=== PATIENT | male | born 1955 | race Caucasian/White ===

== ENCOUNTER 2022-12-11 12:15 | Inpatient (IN) | payer MEDICARE ==
[2022-12-22 14:52] VITALS: BMI 30.2
[2022-12-26] MEDS ORDERED: Dexmedetomidine 200 MCG/2 ML VIAL ONE (09:13)
[2022-12-26] MEDS ORDERED: Fentanyl 250 MCG/5 ML VIAL ONE (09:13)
[2022-12-26] MEDS ORDERED: SUGAMMADEX SODIUM 200 MG/2 ML VIAL ONE (09:13)
[2022-12-26] MEDS ORDERED: Bupivacaine PF 0.5% 30 ML VIAL ONE (09:18)
[2022-12-26] MEDS ORDERED: Sodium Chloride 0.9% 100 ML ONE (09:25)
[2022-12-26] MEDS ORDERED: cefOXitin 2 GM VIAL ONE (09:25)
[2022-12-26] MEDS ORDERED: Rocuronium Bromide 10 MG/ML (10ML VIAL) ONE (09:37)
[2022-12-26] MEDS ORDERED: PROPOFOL 200 MG/20 ML VIAL ONE (09:37)
[2022-12-26] MEDS ORDERED: Lidocaine 1% PF 5 ML VIAL ONE (09:37)
[2022-12-26] MEDS ORDERED: NEOSTIGMINE 3 MG/3 ML SYR 3 MG/3 ML SYRINGE ONE (09:37)
[2022-12-26] MEDS ORDERED: Phenylephrine 10 MG/ML VIAL ONE (09:37)
[2022-12-26] MEDS ORDERED: Ondansetron PF 4 MG/2 ML Vial ONE (09:37)
[2022-12-26] MEDS ORDERED: GLYCOPYRROLATE/PF 0.2 MG/ML VIAL ONE (09:37)
[2022-12-26] MEDS ORDERED: Dextrose 5% in Water 1,000 ML IV PRN (12:33)
[2022-12-26] MEDS ORDERED: Promethazine HCl 25 MG/ML VIAL IM PRN (12:33)
[2022-12-26] MEDS ORDERED: Dextrose 50% Abboject 50 ML SYRINGE SLOW IVP PRN (12:33)
[2022-12-26] MEDS ORDERED: hydrALAZINE 20 MG/ML VIAL SLOW IVP PRN (12:33)
[2022-12-26] MEDS ORDERED: Ipratropium/Albuterol 3 ML NEB NEB PRN (12:33)
[2022-12-26] MEDS ORDERED: Ondansetron PF 4 MG/2 ML Vial IVP PRN (12:33)
[2022-12-26] MEDS ORDERED: Morphine 4 MG/ML VIAL SLOW IVP PRN (12:33)
[2022-12-26] MEDS: Sodium Chloride 0.9% 1,000 ML IV SCH (14:13)
[2022-12-26] MEDS: HYDROcodone/Acetaminophen 7.5/325 mg Tablet PO PRN (21:18)
[2022-12-26] MEDS: traZODone HCl 50 MG TAB PO SCH (21:19)
[2022-12-26] MEDS: Famotidine/PF 20 mg/2ml Vial SLOW IVP SCH (21:20)
[2022-12-26] MEDS: busPIRone HCl 10 MG TAB PO SCH (21:20)
[2022-12-26] MEDS: Losartan 25 MG TAB PO SCH (21:20)
[2022-12-26] MEDS: Atorvastatin Calcium 40 MG TAB PO SCH (21:20)
[2022-12-26] MEDS: Famotidine 20 MG TAB PO SCH (21:20)
[2022-12-27] MEDS: Sodium Chloride 0.9% 1,000 ML IV SCH (02:16)
[2022-12-27 06:01] LABS: #Lymphocytes 0.9 thou/uL (1.20-3.40); #Monocytes 0.7 thou/uL (0.11-0.59); #Neutrophils 5.6 thou/uL (1.40-6.50); %Basophils 0.2 % (0.0-1.0); %Eosinophils 0.4 % (0.0-10.0); %Lymphocytes 12.1 % (21.0-51.0); %Monocytes 9.5 % (0.0-10.0); %Neutrophils 77.9 % (42.0-75.0); Mean Corpuscular HGB CONC 32.8 g/dL (32.0-36.0); Mean Corpuscular Hemoglobin 29.2 pg (27.0-31.0); Mean Platelet Volume 5.7 fL (7.4-10.4); Platelet Count 231 10x3/uL (130-400); RBC Distribution Width 13.7 % (11.5-14.5); White Blood Cell (WBC) Count 7.2 10x3/uL (4.8-10.8)
[2022-12-27 06:23] LABS: Anion Gap 12 mmol/L (10-20); BUN (Urea Nitrogen) 14 mg/dL (8.4-25.7); Calc. Creatinine Clearance 84 mL/min (70-130); Carbon Dioxide 22 mmol/L (23-31); Chloride 96 mmol/L (98-107); Estimated GFR 62; Glucose 173 mg/dL (80-115); Potassium 3.7 mmol/L (3.5-5.1); Sodium 126 mmol/L (136-145)
[2022-12-27] MEDS: hydrALAZINE 25 MG TAB PO SCH ×2 (09:27→12:16)
[2022-12-27] MEDS: Lidocaine 4% Patch TD SCH (09:27)
[2022-12-27] MEDS: Hydrochlorothiazide 25 MG TAB PO SCH (09:28)
[2022-12-27] MEDS: Famotidine 20 MG TAB PO SCH ×2 (09:28→21:56)
[2022-12-27] MEDS: DULoxetine 60 MG CAP PO SCH (09:28)
[2022-12-27] MEDS: Naproxen 500 MG TAB PO SCH (09:28)
[2022-12-27] MEDS: Escitalopram Oxalate 20 mg Tablet PO SCH (09:28)
[2022-12-27] MEDS: busPIRone HCl 10 MG TAB PO SCH ×2 (09:29→21:56)
[2022-12-27] MEDS: Famotidine/PF 20 mg/2ml Vial SLOW IVP SCH ×2 (09:30→22:01)
[2022-12-27] MEDS: HYDROcodone/Acetaminophen 7.5/325 mg Tablet PO PRN ×2 (09:31→15:29)
[2022-12-27] MEDS ORDERED: Transdermal Patch Removal TOP SCH (21:00)
[2022-12-27] MEDS: traZODone HCl 50 MG TAB PO SCH (21:55)
[2022-12-27] MEDS: Losartan 25 MG TAB PO SCH (21:55)
[2022-12-27] MEDS: Atorvastatin Calcium 40 MG TAB PO SCH (21:56)
[2022-12-28] MEDS: Lidocaine 4% Patch TD SCH (08:18)
[2022-12-28] MEDS: busPIRone HCl 10 MG TAB PO SCH (08:19)
[2022-12-28] MEDS: hydrALAZINE 25 MG TAB PO SCH ×2 (08:20→12:07)
[2022-12-28] MEDS: Naproxen 500 MG TAB PO SCH (08:21)
[2022-12-28] MEDS: Famotidine 20 MG TAB PO SCH (08:21)
[2022-12-28] MEDS: DULoxetine 60 MG CAP PO SCH (08:21)
[2022-12-28] MEDS: Escitalopram Oxalate 20 mg Tablet PO SCH (08:22)
[2022-12-28] MEDS: Hydrochlorothiazide 25 MG TAB PO SCH (08:23)
[2022-12-28] MEDS: Famotidine/PF 20 mg/2ml Vial SLOW IVP SCH (08:23)
[2022-12-28] MEDS: HYDROcodone/Acetaminophen 7.5/325 mg Tablet PO PRN (08:34)
[2022-12-28 11:52] VITALS: TEMP 97.8
[2022-12-28 12:20] VITALS: BP 113/67
== END 2022-12-28 12:30 | disposition home health service (06) | DRG 337 ==
LOC: SURG A 12-26 06:05 → SJJU 12-26 13:42 → EDSTATUS 12-26 15:49
PROVIDERS: ADMIT Surgery; ATTEND Surgery
PROC: 0DBU0ZZ Excision of Omentum, Open Approach (ICD-10-PCS; principal; 2022-12-26)
PROC: 0DNW0ZZ Release Peritoneum, Open Approach (ICD-10-PCS; 2022-12-26)
DX: K55.049 Acute infarction of large intestine, extent unspecified (principal); I10 Essential (primary) hypertension; E78.00 Pure hypercholesterolemia, unspecified; F41.9 Anxiety disorder, unspecified; G89.29 Other chronic pain; K66.0 Peritoneal adhesions (postprocedural) (postinfection); Z96.611 Presence of right artificial shoulder joint; Z87.891 Personal history of nicotine dependence; Z90.49 Acquired absence of other specified parts of digestive tract; Z79.899 Other long term (current) drug therapy; Z88.8 Allergy status to other drugs, medicaments and biological substances
CPT/HCPCS: 36416; 80048; 85025; 88307; A4306; C1776; J0694; J1650; J2270; J2370; J2405; J2704; J3010; J3490; J7050; S0020

== ENCOUNTER 2023-01-04 18:38 | Inpatient (IN) | payer MEDICARE ==
[2023-01-04] MEDS ORDERED: Morphine 4 MG/ML VIAL ONE (19:23)
[2023-01-04 19:58] LABS: Hemoglobin 9.7 g/dL (14.0-18.0); Mean Corpuscular HGB CONC 35.3 g/dL (32.0-36.0); Mean Corpuscular Hemoglobin 31.3 pg (27.0-31.0); Mean Corpuscular Volume 88.7 fl (78.0-98.0); Mean Platelet Volume 6.3 fL (7.4-10.4); Platelet Count 194 10x3/uL (130-400); RBC Distribution Width 13.8 % (11.5-14.5); Red Blood Cell (RBC) Count 3.11 mill/uL (4.70-6.10); White Blood Cell (WBC) Count 6.9 10x3/uL (4.8-10.8)
[2023-01-04 20:14] LABS: Anion Gap 16 mmol/L (10-20); BUN (Urea Nitrogen) 31 mg/dL (8.4-25.7); Calc. Creatinine Clearance 0 mL/min (70-130); Carbon Dioxide 21 mmol/L (23-31); Chloride 93 mmol/L (98-107); Estimated GFR 34; Glucose 137 mg/dL (80-115); Potassium 4.1 mmol/L (3.5-5.1); Sodium 126 mmol/L (136-145)
[2023-01-04 20:39] LABS: Band 38 % (5-11); Lymphocytes 5 % (21-51); MDiff Complete? YES; Metamyelocyte 2 % (0-0); Monocytes 5 % (0-10); Neutrophil 50 % (42-75); Platelet Morphology Comment Appears Adequate; RBC Morphology Normal; Toxic Granulation SLIGHT
[2023-01-04] MEDS ORDERED: Dextrose 50% Abboject 50 ML SYRINGE SLOW IVP PRN (21:31)
[2023-01-04] MEDS ORDERED: Piperacillin/Tazobactam 3.375 GM in Sodium Chloride 0.9% 100 ML IVPB SCH (21:31)
[2023-01-04] MEDS ORDERED: Ipratropium/Albuterol 3 ML NEB NEB PRN (21:31)
[2023-01-04] MEDS ORDERED: Morphine 4 MG/ML VIAL SLOW IVP PRN (21:31)
[2023-01-04] MEDS ORDERED: Promethazine HCl 25 MG/ML VIAL IM PRN (21:31)
[2023-01-04] MEDS ORDERED: Dextrose 5% in Water 1,000 ML IV PRN (21:31)
[2023-01-04] MEDS: Sodium Chloride 0.9% 1,000 ML IV SCH (22:09)
[2023-01-04] MEDS: busPIRone HCl 10 MG TAB PO SCH (22:16)
[2023-01-04] MEDS: hydrALAZINE 25 MG TAB PO SCH (22:16)
[2023-01-04] MEDS: traZODone HCl 50 MG TAB PO SCH (22:17)
[2023-01-04] MEDS: Atorvastatin Calcium 40 MG TAB PO SCH (22:18)
[2023-01-05] MEDS: Piperacillin/Tazobactam 3.375 GM in Sodium Chloride 0.9% 100 ML IVPB SCH ×3 (02:47→18:23)
[2023-01-05 06:31] LABS: Anion Gap 18 mmol/L (10-20); BUN (Urea Nitrogen) 38 mg/dL (8.4-25.7); Calc. Creatinine Clearance 34 mL/min (70-130); Calcium 8.3 mg/dL (7.8-10.44); Carbon Dioxide 18 mmol/L (23-31); Chloride 93 mmol/L (98-107); Estimated GFR 21; Glucose 138 mg/dL (80-115); Sodium 125 mmol/L (136-145)
[2023-01-05 06:35] LABS: Band 35 % (5-11); Hemoglobin 8.4 g/dL (14.0-18.0); Lymphocytes 10 % (21-51); MDiff Complete? YES; Mean Corpuscular HGB CONC 33.8 g/dL (32.0-36.0); Mean Corpuscular Volume 88.6 fl (78.0-98.0); Mean Platelet Volume 6.2 fL (7.4-10.4); Metamyelocyte 1 % (0-0); Monocytes 5 % (0-10); Neutrophil 49 % (42-75); Platelet Count 164 10x3/uL (130-400); Platelet Morphology Comment Appears Adequate; RBC Distribution Width 13.8 % (11.5-14.5); RBC Morphology Normal; Red Blood Cell (RBC) Count 2.79 mill/uL (4.70-6.10); White Blood Cell (WBC) Count 5.9 10x3/uL (4.8-10.8)
[2023-01-05] MEDS: Famotidine 20 MG TAB PO SCH (08:50)
[2023-01-05] MEDS: busPIRone HCl 10 MG TAB PO SCH ×2 (08:50→20:28)
[2023-01-05] MEDS: DULoxetine 60 MG CAP PO SCH (08:51)
[2023-01-05] MEDS: Escitalopram Oxalate 20 mg Tablet PO SCH (08:54)
[2023-01-05] MEDS ORDERED: Naproxen 500 MG TAB PO SCH (09:00)
[2023-01-05] MEDS ORDERED: Hydrochlorothiazide 25 MG TAB PO SCH (09:00)
[2023-01-05] MEDS: Sodium Chloride 0.9% 1,000 ML IV SCH ×3 (09:09→21:00)
[2023-01-05] MEDS: hydrALAZINE 25 MG TAB PO SCH ×2 (10:01→20:28)
[2023-01-05] MEDS: Polyethylene Glycol 3350 17 GM Packet PO SCH (10:02)
[2023-01-05] MEDS ORDERED: Sodium Chloride 0.9% 1,000 ML IV SCH (13:45)
[2023-01-05 16:16] LABS: Lactic Acid 1.6 mmol/L (0.5-2.2)
[2023-01-05 16:50] LABS: Anion Gap 20 mmol/L (10-20); BUN (Urea Nitrogen) 46 mg/dL (8.4-25.7); Calc. Creatinine Clearance 27 mL/min (70-130); Calcium 8.3 mg/dL (7.8-10.44); Carbon Dioxide 16 mmol/L (23-31); Chloride 95 mmol/L (98-107); Estimated GFR 16; Glucose 146 mg/dL (80-115); Magnesium 1.7 mg/dL (1.6-2.6); Phosphorus 6.5 mg/dL (2.3-4.7); Potassium 4.1 mmol/L (3.5-5.1); Sodium 127 mmol/L (136-145)
[2023-01-05] MEDS: Atorvastatin Calcium 40 MG TAB PO SCH (20:28)
[2023-01-05] MEDS: traZODone HCl 50 MG TAB PO SCH (20:29)
[2023-01-05] MEDS ORDERED: Losartan 25 MG TAB PO SCH (21:00)
[2023-01-06 00:14] LABS: Bacteria/HPF None Seen HPF (None Seen); Bilirubin Negative (Negative); Blood, Urine 2+ (Negative); Clarity Turbid (Clear); Glucose, Urine (Dipstick) Normal (Negative); Ketone, Urine Negative (Negative); Leukocyte Negative Leu/uL (Negative); Nitrite Negative (Negative); Protein, Urine (Dipstick) 50 mg/dL (Neg-Trace); Squamous Epithelial 0-3 HPF (0-3); Urobilinogen Normal mg/dL (Less than 2)
[2023-01-06] MEDS: Piperacillin/Tazobactam 3.375 GM in Sodium Chloride 0.9% 100 ML IVPB SCH ×3 (02:27→17:58)
[2023-01-06] MEDS: Sodium Chloride 0.9% 1,000 ML IV SCH ×2 (05:23→09:38)
[2023-01-06 07:14] LABS: Hemoglobin 9.4 g/dL (14.0-18.0); Mean Corpuscular HGB CONC 35.2 g/dL (32.0-36.0); Mean Corpuscular Hemoglobin 31.6 pg (27.0-31.0); Mean Corpuscular Volume 89.9 fl (78.0-98.0); Mean Platelet Volume 6.3 fL (7.4-10.4); Platelet Count 189 10x3/uL (130-400); RBC Distribution Width 14.1 % (11.5-14.5); Red Blood Cell (RBC) Count 2.97 mill/uL (4.70-6.10); White Blood Cell (WBC) Count 7.8 10x3/uL (4.8-10.8)
[2023-01-06 07:27] LABS: ALT (SGPT) 13 U/L (8-55); AST (SGOT) 19 U/L (5-34); Albumin 2.3 g/dL (3.4-4.8); Alkaline Phosphatase 127 U/L (40-110); Anion Gap 17 mmol/L (10-20); BUN (Urea Nitrogen) 58 mg/dL (8.4-25.7); Calc. Creatinine Clearance 21 mL/min (70-130); Carbon Dioxide 17 mmol/L (23-31); Chloride 96 mmol/L (98-107); Estimated GFR 12; Glucose 134 mg/dL (80-115); Potassium 4.3 mmol/L (3.5-5.1); Protein, Total 5.3 g/dL (5.8-8.1); Sodium 126 mmol/L (136-145)
[2023-01-06 09:34] LABS: Band 17 % (5-11); Lymphocytes 11 % (21-51); MDiff Complete? YES; Metamyelocyte 3 % (0-0); Monocytes 9 % (0-10); Neutrophil 59 % (42-75); Platelet Morphology Comment Appears Adequate; Polychromasia SLIGHT = 2-3 cells (100X) (0-2/hpf)
[2023-01-06] MEDS: Polyethylene Glycol 3350 17 GM Packet PO SCH (09:42)
[2023-01-06] MEDS: hydrALAZINE 25 MG TAB PO SCH (09:44)
[2023-01-06] MEDS: busPIRone HCl 10 MG TAB PO SCH ×2 (09:44→20:45)
[2023-01-06] MEDS: Famotidine 20 MG TAB PO SCH (09:45)
[2023-01-06] MEDS: Escitalopram Oxalate 20 mg Tablet PO SCH (09:45)
[2023-01-06] MEDS: DULoxetine 60 MG CAP PO SCH (09:45)
[2023-01-06] MEDS: HYDROcodone/Acetaminophen 10/325 mg Tablet PO PRN ×2 (10:06→20:44)
[2023-01-06] MEDS: Albumin 25% 25 GM/100 ML BOT IVPB SCH ×2 (12:59→17:57)
[2023-01-06 20:26] LABS: Anion Gap 19 mmol/L (10-20); BUN (Urea Nitrogen) 64 mg/dL (8.4-25.7); Calc. Creatinine Clearance 19 mL/min (70-130); Calcium 8.3 mg/dL (7.8-10.44); Carbon Dioxide 15 mmol/L (23-31); Chloride 96 mmol/L (98-107); Estimated GFR 11; Glucose 147 mg/dL (80-115); Potassium 4.1 mmol/L (3.5-5.1); Sodium 126 mmol/L (136-145)
[2023-01-06] MEDS: Atorvastatin Calcium 40 MG TAB PO SCH (20:44)
[2023-01-06] MEDS: traZODone HCl 50 MG TAB PO SCH (20:45)
[2023-01-06] MEDS ORDERED: Furosemide 100 MG/10 ML VIAL SLOW IVP SCH (23:30)
[2023-01-07] MEDS: Albumin 25% 25 GM/100 ML BOT IVPB SCH ×2 (00:04→06:02)
[2023-01-07] MEDS: Sodium Chloride 0.9% 1,000 ML IV SCH ×3 (00:05→19:23)
[2023-01-07] MEDS: Piperacillin/Tazobactam 3.375 GM in Sodium Chloride 0.9% 100 ML IVPB SCH ×3 (02:17→21:25)
[2023-01-07 06:23] LABS: Anion Gap 19 mmol/L (10-20); BUN (Urea Nitrogen) 69 mg/dL (8.4-25.7); Calc. Creatinine Clearance 18 mL/min (70-130); Calcium 8.4 mg/dL (7.8-10.44); Carbon Dioxide 15 mmol/L (23-31); Chloride 97 mmol/L (98-107); Estimated GFR 10; Glucose 134 mg/dL (80-115); Potassium 4.2 mmol/L (3.5-5.1); Sodium 127 mmol/L (136-145)
[2023-01-07 06:26] LABS: Anion Gap 20 mmol/L (10-20); BUN (Urea Nitrogen) 72 mg/dL (8.4-25.7); Calc. Creatinine Clearance 18 mL/min (70-130); Calcium 8.5 mg/dL (7.8-10.44); Carbon Dioxide 15 mmol/L (23-31); Chloride 97 mmol/L (98-107); Estimated GFR 10; Glucose 133 mg/dL (80-115); Potassium 4.2 mmol/L (3.5-5.1); Sodium 128 mmol/L (136-145)
[2023-01-07 06:31] LABS: Band 13 % (5-11); Lymphocytes 12 % (21-51); MDiff Complete? YES; Mean Corpuscular HGB CONC 35.1 g/dL (32.0-36.0); Mean Corpuscular Hemoglobin 31.5 pg (27.0-31.0); Mean Corpuscular Volume 89.6 fl (78.0-98.0); Mean Platelet Volume 6.3 fL (7.4-10.4); Metamyelocyte 1 % (0-0); Monocytes 2 % (0-10); Myelocyte 1 % (0-0); Neutrophil 71 % (42-75); Platelet Count 199 10x3/uL (130-400); Platelet Morphology Comment Appears Adequate; RBC Distribution Width 14.4 % (11.5-14.5); RBC Morphology Normal; Red Blood Cell (RBC) Count 2.84 mill/uL (4.70-6.10); White Blood Cell (WBC) Count 9.6 10x3/uL (4.8-10.8)
[2023-01-07] MEDS ORDERED: Heparin 10,000 UNITS/ 10 ML VIAL ONE (08:40)
[2023-01-07] MEDS: busPIRone HCl 10 MG TAB PO SCH ×2 (09:54→21:25)
[2023-01-07] MEDS: Famotidine 20 MG TAB PO SCH (09:55)
[2023-01-07] MEDS: Escitalopram Oxalate 20 mg Tablet PO SCH (09:55)
[2023-01-07] MEDS: Polyethylene Glycol 3350 17 GM Packet PO SCH (09:55)
[2023-01-07] MEDS: DULoxetine 60 MG CAP PO SCH (09:55)
[2023-01-07 12:19] LABS: HBSAg Index 0.22 S/CO (0-0.99); Hep B Surf Ag Non-Reactive S/CO (NonReactive)
[2023-01-07 13:17] LABS: HBSAB Concentration 9.98 mIU/mL
[2023-01-07 13:19] LABS: Hep B Surf AB Indeterminate (NonReactive)
[2023-01-07] MEDS: traZODone HCl 50 MG TAB PO SCH (21:24)
[2023-01-07] MEDS: Atorvastatin Calcium 40 MG TAB PO SCH (21:25)
[2023-01-08] MEDS: hydrALAZINE 20 MG/ML VIAL SLOW IVP PRN (04:56)
[2023-01-08] MEDS: HYDROcodone/Acetaminophen 10/325 mg Tablet PO PRN ×3 (04:56→16:26)
[2023-01-08 06:30] LABS: Band 27 % (5-11); Hypochromia SLIGHT = 6-15 cells (100X) (0-5/hpf); Lymphocytes 9 % (21-51); MDiff Complete? YES; Mean Corpuscular HGB CONC 33.2 g/dL (32.0-36.0); Mean Corpuscular Hemoglobin 29.6 pg (27.0-31.0); Mean Platelet Volume 6.2 fL (7.4-10.4); Monocytes 3 % (0-10); Neutrophil 61 % (42-75); Platelet Count 213 10x3/uL (130-400); Platelet Morphology Comment Appears Adequate; RBC Distribution Width 14.6 % (11.5-14.5); Red Blood Cell (RBC) Count 3.04 mill/uL (4.70-6.10); White Blood Cell (WBC) Count 10.6 10x3/uL (4.8-10.8)
[2023-01-08 06:34] LABS: Anion Gap 22 mmol/L (10-20); BUN (Urea Nitrogen) 67 mg/dL (8.4-25.7); Calc. Creatinine Clearance 18 mL/min (70-130); Calcium 8.8 mg/dL (7.8-10.44); Carbon Dioxide 15 mmol/L (23-31); Chloride 98 mmol/L (98-107); Estimated GFR 10; Glucose 143 mg/dL (80-115); Potassium 4.2 mmol/L (3.5-5.1); Sodium 131 mmol/L (136-145)
[2023-01-08] MEDS: Sodium Chloride 0.9% 1,000 ML IV SCH (09:33)
[2023-01-08] MEDS: Polyethylene Glycol 3350 17 GM Packet PO SCH (09:34)
[2023-01-08] MEDS: busPIRone HCl 10 MG TAB PO SCH ×2 (09:34→21:10)
[2023-01-08] MEDS: Piperacillin/Tazobactam 3.375 GM in Sodium Chloride 0.9% 100 ML IVPB SCH ×2 (09:34→21:09)
[2023-01-08] MEDS: DULoxetine 60 MG CAP PO SCH (09:34)
[2023-01-08] MEDS: Famotidine 20 MG TAB PO SCH (09:34)
[2023-01-08] MEDS: Escitalopram Oxalate 20 mg Tablet PO SCH (09:34)
[2023-01-08] MEDS: Atorvastatin Calcium 40 MG TAB PO SCH (21:10)
[2023-01-08] MEDS: traZODone HCl 50 MG TAB PO SCH (21:10)
[2023-01-09] MEDS: HYDROcodone/Acetaminophen 10/325 mg Tablet PO PRN ×3 (05:25→21:56)
[2023-01-09 06:23] LABS: Anion Gap 19 mmol/L (10-20); BUN (Urea Nitrogen) 56 mg/dL (8.4-25.7); Calc. Creatinine Clearance 21 mL/min (70-130); Calcium 8.7 mg/dL (7.8-10.44); Carbon Dioxide 19 mmol/L (23-31); Chloride 99 mmol/L (98-107); Estimated GFR 12; Glucose 148 mg/dL (80-115); Potassium 3.7 mmol/L (3.5-5.1); Sodium 133 mmol/L (136-145)
[2023-01-09 07:16] LABS: Hemoglobin 9.1 g/dL (14.0-18.0); Mean Corpuscular HGB CONC 33.1 g/dL (32.0-36.0); Mean Corpuscular Hemoglobin 29.5 pg (27.0-31.0); Mean Platelet Volume 6.1 fL (7.4-10.4); Platelet Count 203 10x3/uL (130-400); RBC Distribution Width 14.7 % (11.5-14.5); Red Blood Cell (RBC) Count 3.08 mill/uL (4.70-6.10)
[2023-01-09] MEDS: Sodium Chloride 0.9% 1,000 ML IV SCH (07:26)
[2023-01-09 08:55] LABS: Band 32 % (5-11); Eosinophils 1 % (0-10); Lymphocytes 5 % (21-51); MDiff Complete? YES; Monocytes 4 % (0-10); Myelocyte 2 % (0-0); Neutrophil 55 % (42-75); Platelet Morphology Comment Appears Adequate; Polychromasia SLIGHT = 2-3 cells (100X) (0-2/hpf); Reactive Lymphocytes 1 % (0-10); Toxic Granulation SLIGHT
[2023-01-09] MEDS: Polyethylene Glycol 3350 17 GM Packet PO SCH (09:05)
[2023-01-09] MEDS ORDERED: Heparin 10,000 UNITS/ 10 ML VIAL ONE (10:09)
[2023-01-09] MEDS: Escitalopram Oxalate 20 mg Tablet PO SCH (12:41)
[2023-01-09] MEDS: Famotidine 20 MG TAB PO SCH (12:41)
[2023-01-09] MEDS: busPIRone HCl 10 MG TAB PO SCH ×2 (12:41→21:57)
[2023-01-09] MEDS: DULoxetine 60 MG CAP PO SCH (12:42)
[2023-01-09] MEDS: Piperacillin/Tazobactam 3.375 GM in Sodium Chloride 0.9% 100 ML IVPB SCH ×2 (13:02→21:58)
[2023-01-09] MEDS ORDERED: GASTROGRAFIN 30 ML BOT ONE (15:00)
[2023-01-09] MEDS: traZODone HCl 50 MG TAB PO SCH (21:57)
[2023-01-09] MEDS: Atorvastatin Calcium 40 MG TAB PO SCH (21:57)
[2023-01-10] MEDS: Sodium Chloride 0.9% 1,000 ML IV SCH ×2 (00:47→23:38)
[2023-01-10] MEDS: busPIRone HCl 10 MG TAB PO SCH ×2 (07:45→23:21)
[2023-01-10] MEDS: Escitalopram Oxalate 20 mg Tablet PO SCH (07:46)
[2023-01-10] MEDS: Polyethylene Glycol 3350 17 GM Packet PO SCH (07:46)
[2023-01-10] MEDS: DULoxetine 60 MG CAP PO SCH (07:46)
[2023-01-10] MEDS: Famotidine 20 MG TAB PO SCH (07:46)
[2023-01-10] MEDS: Piperacillin/Tazobactam 3.375 GM in Sodium Chloride 0.9% 100 ML IVPB SCH ×2 (09:03→23:38)
[2023-01-10 10:39] LABS: Hemoglobin 8.9 g/dL (14.0-18.0); Mean Corpuscular HGB CONC 33.8 g/dL (32.0-36.0); Mean Corpuscular Hemoglobin 30.1 pg (27.0-31.0); Mean Corpuscular Volume 89.1 fl (78.0-98.0); Mean Platelet Volume 6.9 fL (7.4-10.4); Platelet Count 168 10x3/uL (130-400); RBC Distribution Width 14.6 % (11.5-14.5); Red Blood Cell (RBC) Count 2.97 mill/uL (4.70-6.10); White Blood Cell (WBC) Count 8.1 10x3/uL (4.8-10.8)
[2023-01-10 10:53] LABS: Anion Gap 19 mmol/L (10-20); BUN (Urea Nitrogen) 47 mg/dL (8.4-25.7); Calc. Creatinine Clearance 26 mL/min (70-130); Calcium 8.2 mg/dL (7.8-10.44); Carbon Dioxide 22 mmol/L (23-31); Chloride 99 mmol/L (98-107); Estimated GFR 15; Glucose 135 mg/dL (80-115); Potassium 3.6 mmol/L (3.5-5.1); Sodium 136 mmol/L (136-145)
[2023-01-10] MEDS ORDERED: Heparin 10,000 UNITS/ 10 ML VIAL ONE ×2 (11:21→14:49)
[2023-01-10 11:56] LABS: Band 25 % (5-11); Eosinophils 1 % (0-10); Lymphocytes 8 % (21-51); MDiff Complete? YES; Metamyelocyte 5 % (0-0); Monocytes 7 % (0-10); Myelocyte 1 % (0-0); Neutrophil 53 % (42-75); Platelet Morphology Comment Appears Adequate; Toxic Granulation SLIGHT
[2023-01-10] MEDS ORDERED: Bupivacaine/Epinephrine 0.25% 30 ML VIAL ONE (14:49)
[2023-01-10] MEDS ORDERED: Lidocaine 2% PF 5 ML VIAL ONE (14:49)
[2023-01-10] MEDS ORDERED: fentaNYL 50 mcg/mL 1 mL Vial ONE ×3 (14:50→20:32)
[2023-01-10] MEDS ORDERED: Midazolam HCl 2 mg/2 ml Vial ONE (14:50)
[2023-01-10] MEDS ORDERED: KETAMINE 100 MG/ML (5ML VIAL) ONE (14:50)
[2023-01-10] MEDS ORDERED: Lidocaine 1% PF 5 ML VIAL ONE (15:22)
[2023-01-10] MEDS ORDERED: NEOSTIGMINE 3 MG/3 ML SYR 3 MG/3 ML SYRINGE ONE (15:22)
[2023-01-10] MEDS ORDERED: Phenylephrine 10 MG/ML VIAL ONE (15:22)
[2023-01-10] MEDS ORDERED: PROPOFOL 200 MG/20 ML VIAL ONE (15:22)
[2023-01-10] MEDS ORDERED: GLYCOPYRROLATE/PF 0.2 MG/ML VIAL ONE (15:22)
[2023-01-10] MEDS ORDERED: Rocuronium Bromide 10 MG/ML (10ML VIAL) ONE (15:22)
[2023-01-10] MEDS ORDERED: Fentanyl 250 MCG/5 ML VIAL ONE (16:53)
[2023-01-10] MEDS ORDERED: Promethazine HCl 25 MG/ML VIAL IM PRN (18:09)
[2023-01-10] MEDS ORDERED: Ondansetron HCl/PF 4 MG/2 ML Vial IVP PRN (18:09)
[2023-01-10] MEDS ORDERED: HYDROmorphone 2 MG/ML VIAL SLOW IVP PRN (18:09)
[2023-01-10] MEDS: Atorvastatin Calcium 40 MG TAB PO SCH (23:21)
[2023-01-10] MEDS: traZODone HCl 50 MG TAB PO SCH (23:21)
[2023-01-11] MEDS: Morphine 2 MG/ML VIAL SLOW IVP PRN ×2 (00:14→18:42)
[2023-01-11] MEDS ORDERED: Lorazepam 2 MG/ML VIAL SLOW IVP SCH (03:30)
[2023-01-11 04:41] LABS: Band 27 % (5-11); Hemoglobin 7.5 g/dL (14.0-18.0); Lymphocytes 2 % (21-51); MDiff Complete? YES; Mean Corpuscular HGB CONC 32.4 g/dL (32.0-36.0); Mean Corpuscular Hemoglobin 28.9 pg (27.0-31.0); Mean Corpuscular Volume 89.3 fl (78.0-98.0); Mean Platelet Volume 7.1 fL (7.4-10.4); Monocytes 5 % (0-10); Myelocyte 1 % (0-0); Neutrophil 65 % (42-75); Platelet Count 208 10x3/uL (130-400); Platelet Morphology Comment Appears Adequate; RBC Distribution Width 14.7 % (11.5-14.5); Red Blood Cell (RBC) Count 2.58 mill/uL (4.70-6.10); Tear Drops SLIGHT = 2-5 cells (100X) (0-1/hpf); White Blood Cell (WBC) Count 16.5 10x3/uL (4.8-10.8)
[2023-01-11 04:46] LABS: ALT (SGPT) 14 U/L (8-55); AST (SGOT) 25 U/L (5-34); Albumin 2.6 g/dL (3.4-4.8); Alkaline Phosphatase 101 U/L (40-110); Anion Gap 21 mmol/L (10-20); BUN (Urea Nitrogen) 39 mg/dL (8.4-25.7); Bilirubin, Total 0.5 mg/dL (0.2-1.2); Calc. Creatinine Clearance 30 mL/min (70-130); Calcium 8.3 mg/dL (7.8-10.44); Carbon Dioxide 18 mmol/L (23-31); Chloride 100 mmol/L (98-107); Estimated GFR 18; Globulin 3.2 g/dL (2.4-3.5); Glucose 186 mg/dL (80-115); Protein, Total 5.8 g/dL (5.8-8.1); Sodium 135 mmol/L (136-145)
[2023-01-11] MEDS: hydrALAZINE 20 MG/ML VIAL SLOW IVP PRN (08:07)
[2023-01-11] MEDS: DULoxetine 60 MG CAP PO SCH ×2 (10:26→10:38)
[2023-01-11] MEDS: busPIRone HCl 10 MG TAB PO SCH ×3 (10:26→20:10)
[2023-01-11] MEDS: Polyethylene Glycol 3350 17 GM Packet PO SCH (10:27)
[2023-01-11] MEDS: Escitalopram Oxalate 20 mg Tablet PO SCH ×2 (10:27→10:38)
[2023-01-11] MEDS: Famotidine 20 MG TAB PO SCH (10:27)
[2023-01-11] MEDS: Piperacillin/Tazobactam 3.375 GM in Sodium Chloride 0.9% 100 ML IVPB SCH ×2 (10:37→21:36)
[2023-01-11] MEDS: Morphine 4 MG/ML VIAL SLOW IVP PRN (13:39)
[2023-01-11] MEDS: Albumin 25% 25 GM/100 ML BOT IVPB SCH ×2 (15:24→17:07)
[2023-01-11] MEDS: Lidocaine 4% Patch TD SCH (15:24)
[2023-01-11] MEDS: Sodium Chloride 0.9% 1,000 ML IV SCH (17:08)
[2023-01-11] MEDS: Atorvastatin Calcium 40 MG TAB PO SCH (20:10)
[2023-01-11] MEDS: traZODone HCl 50 MG TAB PO SCH (20:11)
[2023-01-12] MEDS: Albumin 25% 25 GM/100 ML BOT IVPB SCH ×2 (02:46→09:28)
[2023-01-12] MEDS: LIDOCAINE Patch Removal TOP SCH (02:47)
[2023-01-12 05:53] LABS: Mean Corpuscular HGB CONC 33.9 g/dL (32.0-36.0); Mean Corpuscular Hemoglobin 30.1 pg (27.0-31.0); Mean Platelet Volume 6.2 fL (7.4-10.4); Platelet Count 170 10x3/uL (130-400); RBC Distribution Width 14.4 % (11.5-14.5); Red Blood Cell (RBC) Count 2.33 mill/uL (4.70-6.10); White Blood Cell (WBC) Count 11.5 10x3/uL (4.8-10.8)
[2023-01-12 06:19] LABS: ALT (SGPT) 11 U/L (8-55); AST (SGOT) 23 U/L (5-34); Albumin 3.1 g/dL (3.4-4.8); Alkaline Phosphatase 72 U/L (40-110); Anion Gap 16 mmol/L (10-20); BUN (Urea Nitrogen) 49 mg/dL (8.4-25.7); Bilirubin, Total 0.5 mg/dL (0.2-1.2); Calc. Creatinine Clearance 29 mL/min (70-130); Calcium 8.3 mg/dL (7.8-10.44); Carbon Dioxide 21 mmol/L (23-31); Chloride 100 mmol/L (98-107); Estimated GFR 17; Globulin 2.8 g/dL (2.4-3.5); Glucose 169 mg/dL (80-115); Magnesium 1.8 mg/dL (1.6-2.6); Phosphorus 4.1 mg/dL (2.3-4.7); Potassium 3.3 mmol/L (3.5-5.1); Protein, Total 5.9 g/dL (5.8-8.1); Sodium 134 mmol/L (136-145)
[2023-01-12 06:26] LABS: Band 12 % (5-11); Lymphocytes 6 % (21-51); MDiff Complete? YES; Monocytes 5 % (0-10); Myelocyte 3 % (0-0); Neutrophil 74 % (42-75)
[2023-01-12] MEDS ORDERED: Heparin 10,000 UNITS/ 10 ML VIAL ONE (08:36)
[2023-01-12] MEDS: busPIRone HCl 10 MG TAB PO SCH ×2 (09:28→20:58)
[2023-01-12] MEDS: DULoxetine 60 MG CAP PO SCH (09:29)
[2023-01-12] MEDS: Escitalopram Oxalate 20 mg Tablet PO SCH (09:39)
[2023-01-12] MEDS: Famotidine 20 MG TAB PO SCH (09:40)
[2023-01-12] MEDS: Piperacillin/Tazobactam 3.375 GM in Sodium Chloride 0.9% 100 ML IVPB SCH ×2 (09:41→22:33)
[2023-01-12] MEDS: Polyethylene Glycol 3350 17 GM Packet PO SCH (09:41)
[2023-01-12] MEDS: Lidocaine 4% Patch TD SCH (16:42)
[2023-01-12] MEDS: Sodium Chloride 0.9% 1,000 ML IV SCH (16:42)
[2023-01-12] MEDS: Atorvastatin Calcium 40 MG TAB PO SCH (20:57)
[2023-01-12] MEDS: traZODone HCl 50 MG TAB PO SCH (20:57)
[2023-01-12] MEDS: Doxycycline 100 MG in Sodium Chloride 0.9% 100 ML IVPB SCH (20:58)
[2023-01-12] MEDS ORDERED: Fluconazole In NaCl,Iso-Osm 200 MG in Premix Bag 1 BAG IVPB SCH ×2 (21:00)
[2023-01-12] MEDS ORDERED: Fluconazole In NaCl,Iso-Osm 400 MG in Premix Bag 1 BAG IVPB SCH (21:00)
[2023-01-13 04:48] LABS: Hemoglobin 7.5 g/dL (14.0-18.0); Mean Corpuscular HGB CONC 36.1 g/dL (32.0-36.0); Mean Corpuscular Hemoglobin 31.8 pg (27.0-31.0); Mean Platelet Volume 6.6 fL (7.4-10.4); Platelet Count 146 10x3/uL (130-400); RBC Distribution Width 14.2 % (11.5-14.5); Red Blood Cell (RBC) Count 2.37 mill/uL (4.70-6.10); White Blood Cell (WBC) Count 11.6 10x3/uL (4.8-10.8)
[2023-01-13 05:06] LABS: ALT (SGPT) 30 U/L (8-55); AST (SGOT) 69 U/L (5-34); Albumin 2.8 g/dL (3.4-4.8); Alkaline Phosphatase 95 U/L (40-110); Anion Gap 14 mmol/L (10-20); BUN (Urea Nitrogen) 33 mg/dL (8.4-25.7); Bilirubin, Total 0.6 mg/dL (0.2-1.2); Calc. Creatinine Clearance 44 mL/min (70-130); Calcium 8.1 mg/dL (7.8-10.44); Carbon Dioxide 24 mmol/L (23-31); Chloride 98 mmol/L (98-107); Estimated GFR 29; Globulin 2.9 g/dL (2.4-3.5); Glucose 172 mg/dL (80-115); Potassium 3.3 mmol/L (3.5-5.1); Protein, Total 5.7 g/dL (5.8-8.1); Sodium 133 mmol/L (136-145)
[2023-01-13 06:01] LABS: Band 4 % (5-11); Eosinophils 1 % (0-10); Lymphocytes 7 % (21-51); MDiff Complete? YES; Monocytes 2 % (0-10); Neutrophil 86 % (42-75); Platelet Morphology Comment Appears Adequate; Polychromasia SLIGHT = 2-3 cells (100X) (0-2/hpf); Toxic Granulation SLIGHT
[2023-01-13] MEDS: LIDOCAINE Patch Removal TOP SCH (07:46)
[2023-01-13] MEDS: Polyethylene Glycol 3350 17 GM Packet PO SCH (07:53)
[2023-01-13] MEDS ORDERED: Electrolyte Replacement Protocol 1 EACH FS SCH (09:06)
[2023-01-13] MEDS ORDERED: Potassium Chloride 20 MEQ TAB PO SCH (09:15)
[2023-01-13] MEDS: Escitalopram Oxalate 20 mg Tablet PO SCH (09:36)
[2023-01-13] MEDS: busPIRone HCl 10 MG TAB PO SCH ×2 (09:36→21:13)
[2023-01-13] MEDS: DULoxetine 60 MG CAP PO SCH (09:36)
[2023-01-13] MEDS: Doxycycline 100 MG in Sodium Chloride 0.9% 100 ML IVPB SCH ×2 (09:36→21:14)
[2023-01-13] MEDS: Famotidine 20 MG TAB PO SCH (09:37)
[2023-01-13] MEDS: Heparin 5,000 UNITS/ML VIAL SC SCH ×3 (09:37→21:16)
[2023-01-13] MEDS ORDERED: Magnesium 2 GM/50 ML(in water) 2 GM in Premix Bag 1 BAG IVPB SCH (09:45)
[2023-01-13] MEDS: Ondansetron PF 4 MG/2 ML Vial IVP PRN (09:56)
[2023-01-13] MEDS: Sodium Chloride 0.9% 1,000 ML IV SCH (10:59)
[2023-01-13] MEDS: Piperacillin/Tazobactam 3.375 GM in Sodium Chloride 0.9% 100 ML IVPB SCH ×2 (10:59→21:17)
[2023-01-13] MEDS: Lidocaine 4% Patch TD SCH (17:23)
[2023-01-13] MEDS: HYDROcodone/Acetaminophen 10/325 mg Tablet PO PRN (17:40)
[2023-01-13] MEDS: Atorvastatin Calcium 40 MG TAB PO SCH (21:13)
[2023-01-13] MEDS: Fluconazole In NaCl,Iso-Osm 200 MG in Premix Bag 1 BAG IVPB SCH (21:14)
[2023-01-13] MEDS: traZODone HCl 50 MG TAB PO SCH (21:15)
[2023-01-14] MEDS: LIDOCAINE Patch Removal TOP SCH (03:40)
[2023-01-14 05:30] LABS: #Eosinphils 0.1 thou/uL (0.0-0.7); #Lymphocytes 0.6 thou/uL (1.20-3.40); #Monocytes 0.5 thou/uL (0.11-0.59); #Neutrophils 8.7 thou/uL (1.40-6.50); %Basophils 0.1 % (0.0-1.0); %Eosinophils 0.8 % (0.0-10.0); %Lymphocytes 5.9 % (21.0-51.0); %Monocytes 4.9 % (0.0-10.0); %Neutrophils 88.4 % (42.0-75.0); Hemoglobin 8.1 g/dL (14.0-18.0); Mean Corpuscular HGB CONC 33.6 g/dL (32.0-36.0); Mean Corpuscular Hemoglobin 29.2 pg (27.0-31.0); Mean Platelet Volume 6.2 fL (7.4-10.4); Platelet Count 152 10x3/uL (130-400); RBC Distribution Width 14.2 % (11.5-14.5); Red Blood Cell (RBC) Count 2.76 mill/uL (4.70-6.10); White Blood Cell (WBC) Count 9.8 10x3/uL (4.8-10.8)
[2023-01-14 05:50] LABS: Anion Gap 15 mmol/L (10-20); BUN (Urea Nitrogen) 36 mg/dL (8.4-25.7); Calc. Creatinine Clearance 42 mL/min (70-130); Calcium 8.3 mg/dL (7.8-10.44); Carbon Dioxide 21 mmol/L (23-31); Chloride 100 mmol/L (98-107); Estimated GFR 27; Glucose 156 mg/dL (80-115); Potassium 3.4 mmol/L (3.5-5.1); Sodium 133 mmol/L (136-145)
[2023-01-14] MEDS: Sodium Chloride 0.9% 1,000 ML IV SCH (05:52)
[2023-01-14] MEDS ORDERED: Potassium Chloride 20 MEQ TAB PO SCH (08:00)
[2023-01-14] MEDS: Heparin 5,000 UNITS/ML VIAL SC SCH ×3 (08:35→21:49)
[2023-01-14] MEDS: Polyethylene Glycol 3350 17 GM Packet PO SCH (08:35)
[2023-01-14] MEDS: DULoxetine 60 MG CAP PO SCH (08:35)
[2023-01-14] MEDS: Famotidine 20 MG TAB PO SCH (08:35)
[2023-01-14] MEDS: Doxycycline 100 MG in Sodium Chloride 0.9% 100 ML IVPB SCH ×2 (08:35→23:09)
[2023-01-14] MEDS: busPIRone HCl 10 MG TAB PO SCH ×2 (08:36→21:49)
[2023-01-14] MEDS: Escitalopram Oxalate 20 mg Tablet PO SCH (08:36)
[2023-01-14] MEDS: HYDROcodone/Acetaminophen 10/325 mg Tablet PO PRN ×2 (11:37→16:52)
[2023-01-14] MEDS: Piperacillin/Tazobactam 3.375 GM in Sodium Chloride 0.9% 100 ML IVPB SCH (11:37)
[2023-01-14] MEDS: Lidocaine 4% Patch TD SCH (16:16)
[2023-01-14] MEDS: traZODone HCl 50 MG TAB PO SCH (21:48)
[2023-01-14] MEDS: Atorvastatin Calcium 40 MG TAB PO SCH (21:49)
[2023-01-14] MEDS: Fluconazole In NaCl,Iso-Osm 200 MG in Premix Bag 1 BAG IVPB SCH (21:54)
[2023-01-15] MEDS: Piperacillin/Tazobactam 3.375 GM in Sodium Chloride 0.9% 100 ML IVPB SCH ×3 (00:18→21:23)
[2023-01-15] MEDS: Sodium Chloride 0.9% 1,000 ML IV SCH (02:45)
[2023-01-15] MEDS: LIDOCAINE Patch Removal TOP SCH (02:46)
[2023-01-15 06:29] LABS: #Eosinphils 0.1 thou/uL (0.0-0.7); #Lymphocytes 0.5 thou/uL (1.20-3.40); #Monocytes 0.5 thou/uL (0.11-0.59); #Neutrophils 6.6 thou/uL (1.40-6.50); %Eosinophils 1.2 % (0.0-10.0); %Lymphocytes 6.1 % (21.0-51.0); %Monocytes 6.9 % (0.0-10.0); %Neutrophils 85.8 % (42.0-75.0); Hemoglobin 7.5 g/dL (14.0-18.0); Mean Corpuscular HGB CONC 33.4 g/dL (32.0-36.0); Mean Corpuscular Hemoglobin 29.1 pg (27.0-31.0); Mean Corpuscular Volume 87.2 fl (78.0-98.0); Mean Platelet Volume 6.9 fL (7.4-10.4); Platelet Count 151 10x3/uL (130-400); RBC Distribution Width 14.3 % (11.5-14.5); Red Blood Cell (RBC) Count 2.57 mill/uL (4.70-6.10); White Blood Cell (WBC) Count 7.7 10x3/uL (4.8-10.8)
[2023-01-15 06:46] LABS: Anion Gap 13 mmol/L (10-20); BUN (Urea Nitrogen) 33 mg/dL (8.4-25.7); Calc. Creatinine Clearance 44 mL/min (70-130); Calcium 8.1 mg/dL (7.8-10.44); Carbon Dioxide 20 mmol/L (23-31); Chloride 102 mmol/L (98-107); Estimated GFR 29; Glucose 144 mg/dL (80-115); Potassium 3.3 mmol/L (3.5-5.1); Sodium 132 mmol/L (136-145)
[2023-01-15] MEDS ORDERED: Potassium Chloride 20 MEQ TAB PO SCH (08:00)
[2023-01-15] MEDS: Escitalopram Oxalate 20 mg Tablet PO SCH (09:43)
[2023-01-15] MEDS: DULoxetine 60 MG CAP PO SCH (09:43)
[2023-01-15] MEDS: Heparin 5,000 UNITS/ML VIAL SC SCH ×3 (09:44→21:23)
[2023-01-15] MEDS: Famotidine 20 MG TAB PO SCH (09:44)
[2023-01-15] MEDS: busPIRone HCl 10 MG TAB PO SCH ×2 (09:44→21:23)
[2023-01-15] MEDS: Doxycycline 100 MG in Sodium Chloride 0.9% 100 ML IVPB SCH (09:44)
[2023-01-15] MEDS: Polyethylene Glycol 3350 17 GM Packet PO SCH (09:45)
[2023-01-15] MEDS: Lactated Ringer's 1,000 ML IV SCH ×2 (09:52→21:24)
[2023-01-15] MEDS: Morphine 4 MG/ML VIAL SLOW IVP PRN (11:39)
[2023-01-15] MEDS: Lidocaine 4% Patch TD SCH (15:23)
[2023-01-15] MEDS: Ondansetron PF 4 MG/2 ML Vial IVP PRN (16:40)
[2023-01-15] MEDS: traZODone HCl 50 MG TAB PO SCH (21:23)
[2023-01-15] MEDS: Atorvastatin Calcium 40 MG TAB PO SCH (21:23)
[2023-01-16] MEDS: LIDOCAINE Patch Removal TOP SCH (03:22)
[2023-01-16 06:55] LABS: #Eosinphils 0.1 thou/uL (0.0-0.7); #Lymphocytes 0.5 thou/uL (1.20-3.40); #Monocytes 0.8 thou/uL (0.11-0.59); #Neutrophils 6.4 thou/uL (1.40-6.50); %Basophils 0.5 % (0.0-1.0); %Eosinophils 0.8 % (0.0-10.0); %Lymphocytes 6.7 % (21.0-51.0); %Monocytes 9.7 % (0.0-10.0); %Neutrophils 82.4 % (42.0-75.0); Mean Corpuscular HGB CONC 34.2 g/dL (32.0-36.0); Mean Corpuscular Volume 87.7 fl (78.0-98.0); Platelet Count 134 10x3/uL (130-400); RBC Distribution Width 14.3 % (11.5-14.5); Red Blood Cell (RBC) Count 2.65 mill/uL (4.70-6.10); White Blood Cell (WBC) Count 7.8 10x3/uL (4.8-10.8)
[2023-01-16 07:30] LABS: Anion Gap 13 mmol/L (10-20); BUN (Urea Nitrogen) 29 mg/dL (8.4-25.7); Calc. Creatinine Clearance 47 mL/min (70-130); Carbon Dioxide 21 mmol/L (23-31); Chloride 102 mmol/L (98-107); Estimated GFR 31; Glucose 137 mg/dL (80-115); Potassium 3.5 mmol/L (3.5-5.1); Sodium 132 mmol/L (136-145)
[2023-01-16] MEDS ORDERED: Potassium Chloride 20 MEQ TAB PO SCH (08:00)
[2023-01-16] MEDS ORDERED: traMADol HCl 50 MG TAB PO PRN (09:15)
[2023-01-16] MEDS: busPIRone HCl 10 MG TAB PO SCH ×2 (09:16→21:34)
[2023-01-16] MEDS: Famotidine 20 MG TAB PO SCH (09:16)
[2023-01-16] MEDS: DULoxetine 60 MG CAP PO SCH (09:16)
[2023-01-16] MEDS: Piperacillin/Tazobactam 3.375 GM in Sodium Chloride 0.9% 100 ML IVPB SCH ×2 (09:17→21:37)
[2023-01-16] MEDS: Heparin 5,000 UNITS/ML VIAL SC SCH ×3 (09:17→21:36)
[2023-01-16] MEDS: Escitalopram Oxalate 20 mg Tablet PO SCH (09:18)
[2023-01-16] MEDS: Polyethylene Glycol 3350 17 GM Packet PO SCH (09:18)
[2023-01-16] MEDS: hydrALAZINE 20 MG/ML VIAL SLOW IVP PRN ×2 (09:22→17:05)
[2023-01-16] MEDS ORDERED: HYDROcodone/Acetaminophen 7.5/325 mg Tablet PO PRN (09:55)
[2023-01-16] MEDS: Ondansetron PF 4 MG/2 ML Vial IVP PRN (11:14)
[2023-01-16] MEDS: Lactated Ringer's 1,000 ML IV SCH (11:17)
[2023-01-16] MEDS: Lidocaine 4% Patch TD SCH (14:19)
[2023-01-16] MEDS: HYDROcodone/Acetaminophen 5/325 mg Tablet PO PRN ×2 (17:04→21:37)
[2023-01-16] MEDS: Metoprolol Tartrate 25 MG TAB PO SCH (18:41)
[2023-01-16] MEDS: Atorvastatin Calcium 40 MG TAB PO SCH (21:34)
[2023-01-16] MEDS: traZODone HCl 50 MG TAB PO SCH (21:36)
[2023-01-17] MEDS: Lactated Ringer's 1,000 ML IV SCH ×2 (01:01→14:10)
[2023-01-17] MEDS: LIDOCAINE Patch Removal TOP SCH (02:52)
[2023-01-17 06:00] LABS: #Eosinphils 0.1 thou/uL (0.0-0.7); #Lymphocytes 0.4 thou/uL (1.20-3.40); #Monocytes 0.6 thou/uL (0.11-0.59); #Neutrophils 4.5 thou/uL (1.40-6.50); %Basophils 0.4 % (0.0-1.0); %Eosinophils 1.7 % (0.0-10.0); %Lymphocytes 6.6 % (21.0-51.0); %Monocytes 10.8 % (0.0-10.0); %Neutrophils 80.5 % (42.0-75.0); Hemoglobin 7.4 g/dL (14.0-18.0); Mean Corpuscular Hemoglobin 30.6 pg (27.0-31.0); Mean Corpuscular Volume 87.4 fl (78.0-98.0); Mean Platelet Volume 6.9 fL (7.4-10.4); Platelet Count 130 10x3/uL (130-400); RBC Distribution Width 14.5 % (11.5-14.5); Red Blood Cell (RBC) Count 2.41 mill/uL (4.70-6.10); White Blood Cell (WBC) Count 5.6 10x3/uL (4.8-10.8)
[2023-01-17 06:18] LABS: Anion Gap 13 mmol/L (10-20); BUN (Urea Nitrogen) 27 mg/dL (8.4-25.7); Calc. Creatinine Clearance 50 mL/min (70-130); Calcium 8.1 mg/dL (7.8-10.44); Carbon Dioxide 21 mmol/L (23-31); Chloride 102 mmol/L (98-107); Estimated GFR 33; Glucose 130 mg/dL (80-115); Potassium 3.6 mmol/L (3.5-5.1); Sodium 132 mmol/L (136-145)
[2023-01-17] MEDS: Famotidine 20 MG TAB PO SCH (09:09)
[2023-01-17] MEDS: Ondansetron PF 4 MG/2 ML Vial IVP PRN (09:09)
[2023-01-17] MEDS: Metoprolol Tartrate 25 MG TAB PO SCH ×2 (09:09→21:39)
[2023-01-17] MEDS: Piperacillin/Tazobactam 3.375 GM in Sodium Chloride 0.9% 100 ML IVPB SCH ×2 (09:09→17:02)
[2023-01-17] MEDS: busPIRone HCl 10 MG TAB PO SCH ×2 (09:09→21:39)
[2023-01-17] MEDS: Escitalopram Oxalate 20 mg Tablet PO SCH (09:09)
[2023-01-17] MEDS: DULoxetine 60 MG CAP PO SCH (09:09)
[2023-01-17] MEDS: HYDROcodone/Acetaminophen 5/325 mg Tablet PO PRN ×2 (09:10→21:43)
[2023-01-17] MEDS: Heparin 5,000 UNITS/ML VIAL SC SCH ×3 (09:10→21:39)
[2023-01-17] MEDS: Polyethylene Glycol 3350 17 GM Packet PO SCH (09:10)
[2023-01-17] MEDS: Morphine 4 MG/ML VIAL SLOW IVP PRN (13:18)
[2023-01-17] MEDS: Lidocaine 4% Patch TD SCH (14:10)
[2023-01-17] MEDS: traZODone HCl 50 MG TAB PO SCH (21:38)
[2023-01-17] MEDS: Aspirin 325 mg Enteric Coated Tablet PO SCH (21:39)
[2023-01-17] MEDS: Atorvastatin Calcium 40 MG TAB PO SCH (21:39)
[2023-01-17] MEDS ORDERED: Piperacillin/Tazobactam 3.375 GM in Sodium Chloride 0.9% 100 ML IVPB SCH (22:00)
[2023-01-18] MEDS: Piperacillin/Tazobactam 3.375 GM in Sodium Chloride 0.9% 100 ML IVPB SCH ×3 (01:30→16:15)
[2023-01-18] MEDS: LIDOCAINE Patch Removal TOP SCH (03:23)
[2023-01-18] MEDS: Lactated Ringer's 1,000 ML IV SCH ×2 (03:24→16:27)
[2023-01-18 07:11] LABS: #Eosinphils 0.1 thou/uL (0.0-0.7); #Lymphocytes 0.4 thou/uL (1.20-3.40); #Monocytes 0.6 thou/uL (0.11-0.59); #Neutrophils 3.1 thou/uL (1.40-6.50); %Basophils 0.8 % (0.0-1.0); %Eosinophils 2.9 % (0.0-10.0); %Lymphocytes 8.8 % (21.0-51.0); %Monocytes 14.1 % (0.0-10.0); %Neutrophils 73.5 % (42.0-75.0); Hemoglobin 7.2 g/dL (14.0-18.0); Mean Corpuscular HGB CONC 34.2 g/dL (32.0-36.0); Mean Corpuscular Hemoglobin 30.3 pg (27.0-31.0); Mean Corpuscular Volume 88.8 fl (78.0-98.0); Mean Platelet Volume 7.4 fL (7.4-10.4); Platelet Count 129 10x3/uL (130-400); RBC Distribution Width 14.5 % (11.5-14.5); Red Blood Cell (RBC) Count 2.38 mill/uL (4.70-6.10); White Blood Cell (WBC) Count 4.2 10x3/uL (4.8-10.8)
[2023-01-18 07:29] LABS: Anion Gap 11 mmol/L (10-20); BUN (Urea Nitrogen) 22 mg/dL (8.4-25.7); Calc. Creatinine Clearance 53 mL/min (70-130); Calcium 8.1 mg/dL (7.8-10.44); Carbon Dioxide 23 mmol/L (23-31); Chloride 103 mmol/L (98-107); Estimated GFR 36; Glucose 130 mg/dL (80-115); Magnesium 1.3 mg/dL (1.6-2.6); Potassium 3.6 mmol/L (3.5-5.1); Sodium 133 mmol/L (136-145)
[2023-01-18] MEDS ORDERED: Magnesium Sulfate In Water 4 GM in Premix Bag 1 BAG IVPB SCH (09:00)
[2023-01-18] MEDS: busPIRone HCl 10 MG TAB PO SCH ×2 (09:37→20:29)
[2023-01-18] MEDS: Famotidine 20 MG TAB PO SCH (09:38)
[2023-01-18] MEDS: Escitalopram Oxalate 20 mg Tablet PO SCH (09:38)
[2023-01-18] MEDS: Polyethylene Glycol 3350 17 GM Packet PO SCH (09:38)
[2023-01-18] MEDS: Metoprolol Tartrate 25 MG TAB PO SCH ×2 (09:38→20:29)
[2023-01-18] MEDS: Heparin 5,000 UNITS/ML VIAL SC SCH ×3 (09:38→20:29)
[2023-01-18] MEDS: DULoxetine 60 MG CAP PO SCH (09:38)
[2023-01-18] MEDS: HYDROcodone/Acetaminophen 5/325 mg Tablet PO PRN ×3 (11:29→20:29)
[2023-01-18] MEDS: HumaLOG 300 UNITS/3 ML VIAL SC PRN (13:00)
[2023-01-18] MEDS: Lidocaine 4% Patch TD SCH (16:15)
[2023-01-18] MEDS: Atorvastatin Calcium 40 MG TAB PO SCH (20:29)
[2023-01-18] MEDS: Aspirin 325 mg Enteric Coated Tablet PO SCH (20:30)
[2023-01-18] MEDS: traZODone HCl 50 MG TAB PO SCH (20:30)
[2023-01-18] MEDS: Ondansetron PF 4 MG/2 ML Vial IVP PRN (20:35)
[2023-01-19] MEDS: Piperacillin/Tazobactam 3.375 GM in Sodium Chloride 0.9% 100 ML IVPB SCH ×2 (00:11→08:35)
[2023-01-19] MEDS: HYDROcodone/Acetaminophen 5/325 mg Tablet PO PRN ×4 (04:13→21:20)
[2023-01-19] MEDS: LIDOCAINE Patch Removal TOP SCH (04:17)
[2023-01-19 06:47] LABS: Magnesium 1.5 mg/dL (1.6-2.6)
[2023-01-19] MEDS ORDERED: Magnesium 2 GM/50 ML(in water) 2 GM in Premix Bag 1 BAG IVPB SCH (08:00)
[2023-01-19 08:16] LABS: ALT (SGPT) 12 U/L (8-55); AST (SGOT) 18 U/L (5-34); Albumin 2.4 g/dL (3.4-4.8); Alkaline Phosphatase 67 U/L (40-110); Anion Gap 12 mmol/L (10-20); BUN (Urea Nitrogen) 20 mg/dL (8.4-25.7); Bilirubin, Total 0.3 mg/dL (0.2-1.2); Calc. Creatinine Clearance 55 mL/min (70-130); Calcium 8.2 mg/dL (7.8-10.44); Carbon Dioxide 22 mmol/L (23-31); Chloride 102 mmol/L (98-107); Estimated GFR 38; Globulin 3.2 g/dL (2.4-3.5); Glucose 139 mg/dL (80-115); Potassium 3.6 mmol/L (3.5-5.1); Protein, Total 5.6 g/dL (5.8-8.1); Sodium 132 mmol/L (136-145)
[2023-01-19 08:34] LABS: #Eosinphils 0.1 thou/uL (0.0-0.7); #Lymphocytes 0.4 thou/uL (1.20-3.40); #Monocytes 0.8 thou/uL (0.11-0.59); %Eosinophils 0.9 % (0.0-10.0); %Lymphocytes 6.2 % (21.0-51.0); %Monocytes 13.2 % (0.0-10.0); %Neutrophils 79.7 % (42.0-75.0); Hemoglobin 7.2 g/dL (14.0-18.0); Mean Corpuscular HGB CONC 34.2 g/dL (32.0-36.0); Mean Corpuscular Hemoglobin 30.4 pg (27.0-31.0); Mean Corpuscular Volume 88.8 fl (78.0-98.0); Mean Platelet Volume 8.4 fL (7.4-10.4); Platelet Count 113 10x3/uL (130-400); RBC Distribution Width 14.4 % (11.5-14.5); Red Blood Cell (RBC) Count 2.36 mill/uL (4.70-6.10); White Blood Cell (WBC) Count 6.3 10x3/uL (4.8-10.8)
[2023-01-19] MEDS: Lactated Ringer's 1,000 ML IV SCH ×2 (08:34→19:43)
[2023-01-19] MEDS: Escitalopram Oxalate 20 mg Tablet PO SCH (08:35)
[2023-01-19] MEDS: busPIRone HCl 10 MG TAB PO SCH ×2 (08:35→21:19)
[2023-01-19] MEDS: DULoxetine 60 MG CAP PO SCH (08:36)
[2023-01-19] MEDS: Metoprolol Tartrate 25 MG TAB PO SCH ×2 (08:36→21:20)
[2023-01-19] MEDS: Famotidine 20 MG TAB PO SCH (08:36)
[2023-01-19] MEDS: Heparin 5,000 UNITS/ML VIAL SC SCH ×3 (08:37→21:20)
[2023-01-19] MEDS: Polyethylene Glycol 3350 17 GM Packet PO SCH (08:41)
[2023-01-19] MEDS: HumaLOG 300 UNITS/3 ML VIAL SC PRN (13:02)
[2023-01-19] MEDS: Lidocaine 4% Patch TD SCH (16:22)
[2023-01-19] MEDS: Albumin 25% 25 GM/100 ML BOT IVPB SCH ×2 (17:28→23:29)
[2023-01-19] MEDS ORDERED: Meropenem 1 GM in Sodium Chloride 0.9% 100 ML IVPB SCH (21:00)
[2023-01-19] MEDS: Amoxicillin/Potassium Clav 875 MG TAB PO SCH (21:19)
[2023-01-19] MEDS: traZODone HCl 50 MG TAB PO SCH (21:19)
[2023-01-19] MEDS: Aspirin 325 mg Enteric Coated Tablet PO SCH (21:20)
[2023-01-19] MEDS: Atorvastatin Calcium 40 MG TAB PO SCH (21:20)
[2023-01-20] MEDS: LIDOCAINE Patch Removal TOP SCH ×2 (03:00→21:20)
[2023-01-20 05:14] LABS: Anion Gap 12 mmol/L (10-20); BUN (Urea Nitrogen) 18 mg/dL (8.4-25.7); Calc. Creatinine Clearance 61 mL/min (70-130); Calcium 8.3 mg/dL (7.8-10.44); Carbon Dioxide 24 mmol/L (23-31); Chloride 101 mmol/L (98-107); Estimated GFR 42; Glucose 137 mg/dL (80-115); Magnesium 1.8 mg/dL (1.6-2.6); Potassium 3.7 mmol/L (3.5-5.1); Sodium 133 mmol/L (136-145)
[2023-01-20 05:19] LABS: Band 15 % (5-11); Hemoglobin 6.5 g/dL (14.0-18.0); Lymphocytes 6 % (21-51); MDiff Complete? YES; Mean Corpuscular HGB CONC 34.1 g/dL (32.0-36.0); Mean Corpuscular Hemoglobin 30.3 pg (27.0-31.0); Mean Corpuscular Volume 88.9 fl (78.0-98.0); Monocytes 3 % (0-10); Neutrophil 76 % (42-75); Platelet Count 120 10x3/uL (130-400); Platelet Morphology Comment Appears Decreased; RBC Distribution Width 14.5 % (11.5-14.5); RBC Morphology Normal; Red Blood Cell (RBC) Count 2.13 mill/uL (4.70-6.10); White Blood Cell (WBC) Count 4.3 10x3/uL (4.8-10.8)
[2023-01-20] MEDS ORDERED: Magnesium 2 GM/50 ML(in water) 2 GM in Premix Bag 1 BAG IVPB SCH (05:30)
[2023-01-20] MEDS: HYDROcodone/Acetaminophen 5/325 mg Tablet PO PRN ×2 (06:02→20:42)
[2023-01-20] MEDS: Albumin 25% 25 GM/100 ML BOT IVPB SCH ×2 (07:45→13:32)
[2023-01-20] MEDS ORDERED: Meropenem 1 GM in Sodium Chloride 0.9% 100 ML IVPB SCH (09:00)
[2023-01-20] MEDS: Ondansetron PF 4 MG/2 ML Vial IVP PRN (09:52)
[2023-01-20] MEDS: Polyethylene Glycol 3350 17 GM Packet PO SCH (11:03)
[2023-01-20] MEDS: Heparin 5,000 UNITS/ML VIAL SC SCH (11:05)
[2023-01-20] MEDS: busPIRone HCl 10 MG TAB PO SCH ×2 (11:05→20:41)
[2023-01-20] MEDS: Amoxicillin/Potassium Clav 875 MG TAB PO SCH ×3 (11:05→20:41)
[2023-01-20] MEDS: Famotidine 20 MG TAB PO SCH (11:28)
[2023-01-20] MEDS: Metoprolol Tartrate 25 MG TAB PO SCH ×2 (11:28→20:42)
[2023-01-20] MEDS: Escitalopram Oxalate 20 mg Tablet PO SCH (11:28)
[2023-01-20] MEDS: DULoxetine 60 MG CAP PO SCH (11:28)
[2023-01-20] MEDS ORDERED: Acetaminophen 325 MG TAB PO PRN (11:44)
[2023-01-20] MEDS: Lidocaine 4% Patch TD SCH (16:01)
[2023-01-20 17:29] LABS: Glucose 135 mg/dL (80-115)
[2023-01-20] MEDS: Aspirin 325 mg Enteric Coated Tablet PO SCH (20:40)
[2023-01-20] MEDS: traZODone HCl 50 MG TAB PO SCH (20:40)
[2023-01-20] MEDS: Atorvastatin Calcium 40 MG TAB PO SCH (20:41)
[2023-01-20 22:05] LABS: Glucose 145 mg/dL (80-115)
[2023-01-21] MEDS: HYDROcodone/Acetaminophen 5/325 mg Tablet PO PRN ×3 (05:12→20:33)
[2023-01-21 07:21] LABS: #Eosinphils 0.1 thou/uL (0.0-0.7); #Lymphocytes 0.4 thou/uL (1.20-3.40); #Monocytes 0.6 thou/uL (0.11-0.59); #Neutrophils 3.7 thou/uL (1.40-6.50); %Basophils 0.3 % (0.0-1.0); %Eosinophils 1.2 % (0.0-10.0); %Neutrophils 77.4 % (42.0-75.0); Mean Corpuscular HGB CONC 34.1 g/dL (32.0-36.0); Mean Corpuscular Hemoglobin 29.8 pg (27.0-31.0); Mean Corpuscular Volume 87.3 fl (78.0-98.0); Mean Platelet Volume 7.3 fL (7.4-10.4); Platelet Count 160 10x3/uL (130-400); RBC Distribution Width 14.6 % (11.5-14.5); White Blood Cell (WBC) Count 4.8 10x3/uL (4.8-10.8)
[2023-01-21 07:40] LABS: Anion Gap 12 mmol/L (10-20); BUN (Urea Nitrogen) 15 mg/dL (8.4-25.7); Calc. Creatinine Clearance 63 mL/min (70-130); Calcium 8.4 mg/dL (7.8-10.44); Carbon Dioxide 22 mmol/L (23-31); Chloride 101 mmol/L (98-107); Estimated GFR 45; Glucose 134 mg/dL (80-115); Magnesium 1.5 mg/dL (1.6-2.6); Potassium 3.4 mmol/L (3.5-5.1); Sodium 132 mmol/L (136-145)
[2023-01-21] MEDS ORDERED: Magnesium 2 GM/50 ML(in water) 2 GM in Premix Bag 1 BAG IVPB SCH (09:15)
[2023-01-21] MEDS ORDERED: Potassium Chloride 20 MEQ TAB PO SCH (09:15)
[2023-01-21] MEDS: Amoxicillin/Potassium Clav 875 MG TAB PO SCH ×2 (09:23→20:32)
[2023-01-21] MEDS: Escitalopram Oxalate 20 mg Tablet PO SCH (09:23)
[2023-01-21] MEDS: Famotidine 20 MG TAB PO SCH (09:23)
[2023-01-21] MEDS: busPIRone HCl 10 MG TAB PO SCH ×2 (09:23→20:33)
[2023-01-21] MEDS: DULoxetine 60 MG CAP PO SCH (09:24)
[2023-01-21] MEDS: Metoprolol Tartrate 25 MG TAB PO SCH ×2 (09:24→20:33)
[2023-01-21] MEDS: Polyethylene Glycol 3350 17 GM Packet PO SCH (09:26)
[2023-01-21] MEDS: Mupirocin 2% Ointment 22 GM Tube TOP SCH ×4 (09:29→20:35)
[2023-01-21 11:38] LABS: Glucose 137 mg/dL (80-115)
[2023-01-21] MEDS: Lidocaine 4% Patch TD SCH (16:38)
[2023-01-21] MEDS: Ondansetron PF 4 MG/2 ML Vial IVP PRN (16:38)
[2023-01-21] MEDS: Heparin 5,000 UNITS/ML VIAL SC SCH ×2 (16:38→20:34)
[2023-01-21 17:51] LABS: Glucose 128 mg/dL (80-115)
[2023-01-21] MEDS: traZODone HCl 50 MG TAB PO SCH (20:32)
[2023-01-21] MEDS: Atorvastatin Calcium 40 MG TAB PO SCH (20:33)
[2023-01-21] MEDS: Aspirin 325 mg Enteric Coated Tablet PO SCH (20:33)
[2023-01-21 21:31] LABS: Glucose 123 mg/dL (80-115)
[2023-01-22] MEDS: LIDOCAINE Patch Removal TOP SCH (03:10)
[2023-01-22 07:01] LABS: Hemoglobin 7.5 g/dL (14.0-18.0); Mean Corpuscular HGB CONC 34.6 g/dL (32.0-36.0); Mean Corpuscular Hemoglobin 30.1 pg (27.0-31.0); Mean Platelet Volume 7.4 fL (7.4-10.4); Platelet Count 155 10x3/uL (130-400); RBC Distribution Width 14.5 % (11.5-14.5)
[2023-01-22 07:14] LABS: Anion Gap 14 mmol/L (10-20); BUN (Urea Nitrogen) 14 mg/dL (8.4-25.7); Calc. Creatinine Clearance 71 mL/min (70-130); Calcium 8.4 mg/dL (7.8-10.44); Carbon Dioxide 21 mmol/L (23-31); Chloride 100 mmol/L (98-107); Estimated GFR 51; Glucose 126 mg/dL (80-115); Magnesium 1.4 mg/dL (1.6-2.6); Potassium 3.4 mmol/L (3.5-5.1); Sodium 132 mmol/L (136-145)
[2023-01-22] MEDS ORDERED: Potassium Chloride 20 MEQ TAB PO SCH (08:00)
[2023-01-22] MEDS ORDERED: Magnesium 2 GM/50 ML(in water) 2 GM in Premix Bag 1 BAG IVPB SCH (08:00)
[2023-01-22] MEDS ORDERED: Magnesium Sulfate In Water 4 GM in Premix Bag 1 BAG IVPB SCH (08:00)
[2023-01-22] MEDS: DULoxetine 60 MG CAP PO SCH (08:37)
[2023-01-22] MEDS: Amoxicillin/Potassium Clav 875 MG TAB PO SCH (08:37)
[2023-01-22] MEDS: busPIRone HCl 10 MG TAB PO SCH (08:37)
[2023-01-22] MEDS: Famotidine 20 MG TAB PO SCH (08:38)
[2023-01-22] MEDS: Heparin 5,000 UNITS/ML VIAL SC SCH (08:38)
[2023-01-22] MEDS: Metoprolol Tartrate 25 MG TAB PO SCH (08:38)
[2023-01-22] MEDS: Escitalopram Oxalate 20 mg Tablet PO SCH (08:38)
[2023-01-22] MEDS: Polyethylene Glycol 3350 17 GM Packet PO SCH (08:39)
[2023-01-22] MEDS: Mupirocin 2% Ointment 22 GM Tube TOP SCH (08:39)
[2023-01-22] MEDS ORDERED: Losartan 25 MG TAB PO SCH (09:45)
[2023-01-22 10:20] LABS: Band 25 % (5-11); Eosinophils 2 % (0-10); Lymphocytes 10 % (21-51); MDiff Complete? YES; Monocytes 16 % (0-10); Neutrophil 47 % (42-75); Platelet Morphology Comment Appears Adequate; Polychromasia SLIGHT = 2-3 cells (100X) (0-2/hpf)
[2023-01-22] MEDS: HYDROcodone/Acetaminophen 5/325 mg Tablet PO PRN (11:35)
[2023-01-22 12:29] VITALS: BP 166/80; TEMP 97.3
[2023-01-22] MEDS ORDERED: Carvedilol 6.25 MG TAB PO SCH (17:00)
[2023-01-23] MEDS ORDERED: Losartan 25 MG TAB PO SCH (09:00)
== END 2023-01-22 14:33 | DRG 856 ==
LOC: ERS 18:38 → SURG B 19:10 → INTOOBSV 19:10 → OBSVTOIN 01-05 12:08 → SURG A 01-10 18:21 → IMCU/EMU 01-10 22:49 → SURG A 01-14 15:31
PROVIDERS: ADMIT Surgery; ATTEND Emergency Medicine
PROC: 3E03329 Introduction of Other Anti-infective into Peripheral Vein, Percutaneous Approach (ICD-10-PCS; 2023-01-05)
PROC: 5A1D70Z Performance of Urinary Filtration, Intermittent, Less than 6 Hours Per Day (ICD-10-PCS; 2023-01-07)
PROC: 06HY33Z Insertion of Infusion Device into Lower Vein, Percutaneous Approach (ICD-10-PCS; 2023-01-07)
PROC: 0D1N0Z4 Bypass Sigmoid Colon to Cutaneous, Open Approach (ICD-10-PCS; principal; 2023-01-10)
PROC: 0JH63XZ Insertion of Tunneled Vascular Access Device into Chest Subcutaneous Tissue and Fascia, Percutaneous Approach (ICD-10-PCS; 2023-01-10)
PROC: 02HV33Z Insertion of Infusion Device into Superior Vena Cava, Percutaneous Approach (ICD-10-PCS; 2023-01-10)
PROC: B518YZA Fluoroscopy of Superior Vena Cava using Other Contrast, Guidance (ICD-10-PCS; 2023-01-10)
PROC: 30233N1 Transfusion of Nonautologous Red Blood Cells into Peripheral Vein, Percutaneous Approach (ICD-10-PCS; 2023-01-12)
DX: T81.43XA Infection following a procedure, organ and space surgical site, initial encounter (principal); A41.9 Sepsis, unspecified organism; K63.1 Perforation of intestine (nontraumatic); K65.9 Peritonitis, unspecified; N17.0 Acute kidney failure with tubular necrosis; K65.1 Peritoneal abscess; I50.21 Acute systolic (congestive) heart failure; L02.211 Cutaneous abscess of abdominal wall; E87.1 Hypo-osmolality and hyponatremia; K63.2 Fistula of intestine; E87.20 Acidosis, unspecified; I10 Essential (primary) hypertension; E11.9 Type 2 diabetes mellitus without complications; E78.5 Hyperlipidemia, unspecified; I25.10 Atherosclerotic heart disease of native coronary artery without angina pectoris; R34 Anuria and oliguria; G47.00 Insomnia, unspecified; K21.9 Gastro-esophageal reflux disease without esophagitis; F32.A Depression, unspecified; Y83.8 Other surgical procedures as the cause of abnormal reaction of the patient, or of later complication, without mention of misadventure at the time of the procedure; F43.10 Post-traumatic stress disorder, unspecified; Z88.8 Allergy status to other drugs, medicaments and biological substances; Z87.891 Personal history of nicotine dependence; D64.9 Anemia, unspecified; E83.42 Hypomagnesemia; E87.6 Hypokalemia; D69.6 Thrombocytopenia, unspecified
CPT/HCPCS: 36415; 36416; 36430; 71045; 74018; 74176; 76705; 76770; 80048; 80053; 81003; 81015; 82010; 83605; 83735; 83930; 83935; 84100; 84145; 84300; 84443; 85025; 86706; 86850; 86900; 86901; 87040; 87340; 90935; 93306; 96374; 97139; C1752; C1889; G0257; J0360; J1450; J1644; J1650; J1815; J1940; J2001; J2060; J2250; J2270; J2272; J2370; J2405; J2543; J2704; J3010; J3475; J3490; J7050; J7120; P9016; P9047; Q9963

== ENCOUNTER 2023-02-23 07:42 | Emergency (ER) | payer MEDICARE | END 2023-02-23 08:59 | disposition home or self-care (01) | LOC: ERS 07:42 | DX: T81.89XD Other complications of procedures, not elsewhere classified, subsequent encounter (principal); E11.9 Type 2 diabetes mellitus without complications; E78.5 Hyperlipidemia, unspecified; I10 Essential (primary) hypertension; Z87.891 Personal history of nicotine dependence; Z79.899 Other long term (current) drug therapy; Z79.84 Long term (current) use of oral hypoglycemic drugs | CPT/HCPCS: 94760; 99282 ==

== ENCOUNTER 2023-07-09 10:23 | Outpatient (CLI) | payer MEDICARE ==
[2023-07-09 11:53] LABS: #Monocytes 0.4 10x3/uL (0.0-1.1); #Neutrophils 4.6 10x3/uL (1.5-8.4); %Basophils 0.3 % (0.0-2.0); %Eosinophils 0.7 % (0.0-6.0); %Lymphocytes 11.3 % (18.0-47.0); %Neutrophils 80.5 % (40.0-75.0); Hematocrit 30.7 % (38.8-50.0); Hemoglobin 10.2 g/dL (13.5-17.5); Mean Corpuscular HGB CONC 33.2 g/dL (32.0-36.0); Mean Corpuscular Hemoglobin 28.7 pg (27.0-33.0); Mean Corpuscular Volume 86.5 fl (81.2-95.1); Mean Platelet Volume 8.2 fl (7.4-10.4); Platelet Count 167 10x3/uL (150-450); RBC Distribution Width 14.9 % (11.5-14.5); Red Blood Cell (RBC) Count 3.55 10x6/uL (4.32-5.72); White Blood Cell (WBC) Count 5.8 10x3/uL (3.5-10.5)
[2023-07-09 12:26] LABS: Anion Gap 15 mmol/L (10-20); BUN (Urea Nitrogen) 21 mg/dL (8.4-25.7); Calc. Creatinine Clearance 0 mL/min (70-130); Calcium 9.3 mg/dL (7.8-10.44); Carbon Dioxide 21 mmol/L (23-31); Chloride 104 mmol/L (98-107); Estimated GFR 50; Glucose 139 mg/dL (80-115); Potassium 3.9 mmol/L (3.5-5.1); Sodium 136 mmol/L (136-145)
[2023-07-09 20:50] LABS: Hemoglobin A1c 5.4 % (4.0-6.0)
== END 2023-07-09 10:24 | disposition home or self-care (01) ==
LOC: LABBT 10:23
PROVIDERS: ATTEND Surgery
DX: Z01.818 Encounter for other preprocedural examination (principal); K94.03 Colostomy malfunction
CPT/HCPCS: 80048; 83036; 85025; 93005; 93010

== ENCOUNTER 2023-07-09 11:00 | Inpatient (IN) | payer MEDICARE ==
[2023-07-09 11:00] VITALS: BMI 25.7
[2023-07-17] MEDS ORDERED: Bupivacaine PF 0.5% 30 ML VIAL ONE (07:54)
[2023-07-17] MEDS ORDERED: fentaNYL 50 mcg/mL 1 mL Vial ONE ×4 (07:54→15:11)
[2023-07-17] MEDS ORDERED: Midazolam HCl 2 mg/2 ml Vial ONE (07:54)
[2023-07-17] MEDS ORDERED: Acetaminophen 500 MG TAB ONE (10:08)
[2023-07-17] MEDS ORDERED: SUGAMMADEX SODIUM 200 MG/2 ML VIAL ONE (10:19)
[2023-07-17] MEDS ORDERED: Sevoflurane 250 ML INH ANEST BOTTLE ONE (10:19)
[2023-07-17] MEDS ORDERED: fentaNYL PF 100 MCG/2 ML SYRINGE ONE (10:19)
[2023-07-17] MEDS ORDERED: Sodium Chloride 0.9% 100 ML ONE (10:31)
[2023-07-17] MEDS ORDERED: cefOXitin 2 GM VIAL ONE ×2 (10:31→13:09)
[2023-07-17] MEDS ORDERED: Lidocaine 1% PF 5 ML VIAL ONE (10:42)
[2023-07-17] MEDS ORDERED: PROPOFOL 200 MG/20 ML VIAL ONE (10:42)
[2023-07-17] MEDS ORDERED: Ondansetron PF 4 MG/2 ML Vial ONE ×2 (10:42→14:34)
[2023-07-17] MEDS ORDERED: Rocuronium Bromide 10 MG/ML (10ML VIAL) ONE (10:42)
[2023-07-17] MEDS ORDERED: NEOSTIGMINE 3 MG/3 ML SYR 3 MG/3 ML SYRINGE ONE (10:42)
[2023-07-17] MEDS ORDERED: Dexamethasone 20 MG/5 ML VIAL ONE (10:42)
[2023-07-17] MEDS ORDERED: PHENYLEPHRINE-NS 100 MCG/ML 10 ML SYRINGE ONE (10:42)
[2023-07-17] MEDS ORDERED: ePHEDrine Sulfate 50 MG/10 ML VIAL ONE (10:42)
[2023-07-17] MEDS ORDERED: Glycopyrrolate 0.2 MG/ML 5 ML SYRINGE ONE (10:42)
[2023-07-17] MEDS ORDERED: Naloxone HCl 0.4 mg/ml Vial IV PRN (11:55)
[2023-07-17] MEDS ORDERED: Ondansetron PF 4 MG/2 ML Vial IVP PRN ×2 (11:55→14:16)
[2023-07-17] MEDS ORDERED: Ondansetron HCl/PF 4 MG/2 ML Vial IVP PRN (11:55)
[2023-07-17] MEDS ORDERED: diphenhydrAMINE 25 MG CAP PO PRN (11:55)
[2023-07-17] MEDS ORDERED: Promethazine HCl 25 MG/ML VIAL IM PRN ×3 (11:55→14:16)
[2023-07-17] MEDS ORDERED: FENTANYL 500 MCG/10 ML VIAL 2,000 MCG in Sodium Chloride 0.9% 60 ML IV PRN (11:55)
[2023-07-17] MEDS ORDERED: diphenhydrAMINE 50 MG/ML VIAL IM PRN (11:55)
[2023-07-17] MEDS ORDERED: diphenhydrAMINE 50 MG/ML VIAL IVP PRN (11:55)
[2023-07-17] MEDS ORDERED: Communication Order-Pharmacy FS SCH (12:00)
[2023-07-17] MEDS ORDERED: HumaLOG 300 UNITS/3 ML VIAL SC PRN (14:16)
[2023-07-17] MEDS ORDERED: Ipratropium/Albuterol 3 ML NEB NEB PRN (14:16)
[2023-07-17] MEDS ORDERED: hydrALAZINE 20 MG/ML VIAL SLOW IVP PRN (14:16)
[2023-07-17 15:06] LABS: Hematocrit 31.3 % (42.0-52.0); Hemoglobin 10.7 g/dL (14.0-18.0)
[2023-07-17] MEDS: Sodium Chloride 0.9% 1,000 ML IV SCH ×2 (17:40→22:19)
[2023-07-17] MEDS: busPIRone HCl 10 MG TAB PO SCH (22:17)
[2023-07-17] MEDS: Losartan 25 MG TAB PO SCH (22:18)
[2023-07-17] MEDS: Famotidine 20 MG TAB PO SCH (22:18)
[2023-07-17] MEDS: Famotidine/PF 20 mg/2ml Vial SLOW IVP SCH (22:19)
[2023-07-17] MEDS: cefOXitin 2 GM in Sodium Chloride 0.9% 100 ML IVPB SCH (22:19)
[2023-07-17] MEDS: traZODone HCl 50 MG TAB PO SCH (22:19)
[2023-07-18] MEDS: cefOXitin 2 GM in Sodium Chloride 0.9% 100 ML IVPB SCH (04:13)
[2023-07-18 05:40] LABS: #Monocytes 0.7 thou/uL (0.11-0.59); #Neutrophils 6.2 thou/uL (1.40-6.50); %Basophils 0.1 % (0.0-1.0); %Lymphocytes 7.5 % (21.0-51.0); %Monocytes 9.7 % (0.0-10.0); %Neutrophils 82.6 % (42.0-75.0); Hematocrit 27.8 % (42.0-52.0); Hemoglobin 9.4 g/dL (14.0-18.0); Mean Corpuscular HGB CONC 33.8 g/dL (32.0-36.0); Mean Corpuscular Hemoglobin 29.5 pg (27.0-31.0); Mean Corpuscular Volume 87.1 fl (78.0-98.0); Mean Platelet Volume 8.2 fL (7.4-10.4); Platelet Count 166 10x3/uL (130-400); RBC Distribution Width 15.1 % (11.5-14.5); Red Blood Cell (RBC) Count 3.19 mill/uL (4.70-6.10); White Blood Cell (WBC) Count 7.5 10x3/uL (4.8-10.8)
[2023-07-18 06:07] LABS: Anion Gap 13 mmol/L (10-20); BUN (Urea Nitrogen) 21 mg/dL (8.4-25.7); Calc. Creatinine Clearance 54 mL/min (70-130); Calcium 8.5 mg/dL (7.8-10.44); Carbon Dioxide 20 mmol/L (23-31); Chloride 106 mmol/L (98-107); Estimated GFR 45; Glucose 156 mg/dL (80-115); Potassium 3.9 mmol/L (3.5-5.1); Sodium 135 mmol/L (136-145)
[2023-07-18] MEDS: busPIRone HCl 10 MG TAB PO SCH ×2 (08:01→21:45)
[2023-07-18] MEDS: Famotidine/PF 20 mg/2ml Vial SLOW IVP SCH ×2 (08:01→23:07)
[2023-07-18] MEDS: Escitalopram Oxalate 20 mg Tablet PO SCH (08:01)
[2023-07-18] MEDS: DULoxetine 60 MG CAP PO SCH (08:01)
[2023-07-18] MEDS: Lidocaine 4% Patch TD SCH (08:01)
[2023-07-18] MEDS: Sodium Chloride 0.9% 1,000 ML IV SCH ×2 (08:07→15:40)
[2023-07-18] MEDS: Famotidine 20 MG TAB PO SCH ×2 (08:53→21:45)
[2023-07-18] MEDS ORDERED: Piperacillin/Tazobactam 2.25 GM in Sodium Chloride 0.9% 100 ML IVPB SCH (14:00)
[2023-07-18] MEDS ORDERED: Piperacillin/Tazobactam 3.375 GM in Sodium Chloride 0.9% 100 ML IVPB SCH (15:30)
[2023-07-18] MEDS ORDERED: Transdermal Patch Removal TOP SCH (21:00)
[2023-07-18] MEDS: traZODone HCl 50 MG TAB PO SCH (21:44)
[2023-07-18] MEDS: Piperacillin/Tazobactam 3.375 GM in Sodium Chloride 0.9% 100 ML IVPB SCH (21:45)
[2023-07-18] MEDS: Losartan 25 MG TAB PO SCH (21:45)
[2023-07-19] MEDS: Piperacillin/Tazobactam 3.375 GM in Sodium Chloride 0.9% 100 ML IVPB SCH (03:48)
[2023-07-19] MEDS: Sodium Chloride 0.9% 1,000 ML IV SCH ×4 (03:48→20:56)
[2023-07-19 06:01] LABS: #Monocytes 0.6 thou/uL (0.11-0.59); #Neutrophils 4.7 thou/uL (1.40-6.50); %Basophils 0.2 % (0.0-1.0); %Eosinophils 0.7 % (0.0-10.0); %Lymphocytes 9.9 % (21.0-51.0); %Monocytes 10.4 % (0.0-10.0); %Neutrophils 78.5 % (42.0-75.0); Hematocrit 22.6 % (42.0-52.0); Hemoglobin 7.5 g/dL (14.0-18.0); Mean Corpuscular HGB CONC 33.2 g/dL (32.0-36.0); Mean Corpuscular Hemoglobin 29.8 pg (27.0-31.0); Mean Corpuscular Volume 89.7 fl (78.0-98.0); Mean Platelet Volume 8.2 fL (7.4-10.4); Platelet Count 165 10x3/uL (130-400); RBC Distribution Width 15.4 % (11.5-14.5); Red Blood Cell (RBC) Count 2.52 mill/uL (4.70-6.10)
[2023-07-19 06:30] LABS: Anion Gap 8 mmol/L (10-20); BUN (Urea Nitrogen) 18 mg/dL (8.4-25.7); Calc. Creatinine Clearance 64 mL/min (70-130); Calcium 8.6 mg/dL (7.8-10.44); Carbon Dioxide 23 mmol/L (23-31); Chloride 106 mmol/L (98-107); Estimated GFR 54; Glucose 127 mg/dL (80-115); Potassium 3.8 mmol/L (3.5-5.1); Sodium 133 mmol/L (136-145)
[2023-07-19] MEDS: busPIRone HCl 10 MG TAB PO SCH ×2 (08:40→20:55)
[2023-07-19] MEDS: Famotidine 20 MG TAB PO SCH ×2 (08:41→20:55)
[2023-07-19] MEDS: Escitalopram Oxalate 20 mg Tablet PO SCH (08:42)
[2023-07-19] MEDS: DULoxetine 60 MG CAP PO SCH (08:42)
[2023-07-19] MEDS: Famotidine/PF 20 mg/2ml Vial SLOW IVP SCH (08:43)
[2023-07-19] MEDS ORDERED: Meropenem 1 GM in Sodium Chloride 0.9% 100 ML IVPB SCH (11:15)
[2023-07-19] MEDS ORDERED: Sodium Chloride 0.9% 0 ML ONE (11:54)
[2023-07-19] MEDS: Meropenem 1 GM in Sodium Chloride 0.9% 100 ML IVPB SCH (20:56)
[2023-07-19] MEDS: Losartan 25 MG TAB PO SCH (21:00)
[2023-07-19] MEDS ORDERED: traZODone HCl 50 MG TAB PO SCH (21:00)
[2023-07-20] MEDS: Meropenem 1 GM in Sodium Chloride 0.9% 100 ML IVPB SCH ×2 (05:20→13:18)
[2023-07-20 06:07] LABS: #Eosinphils 0.1 thou/uL (0.0-0.7); #Monocytes 0.4 thou/uL (0.11-0.59); #Neutrophils 3.7 thou/uL (1.40-6.50); %Basophils 0.4 % (0.0-1.0); %Eosinophils 1.9 % (0.0-10.0); %Lymphocytes 9.6 % (21.0-51.0); %Monocytes 8.1 % (0.0-10.0); %Neutrophils 79.6 % (42.0-75.0); Hematocrit 22.8 % (42.0-52.0); Hemoglobin 7.6 g/dL (14.0-18.0); Mean Corpuscular HGB CONC 33.3 g/dL (32.0-36.0); Mean Corpuscular Hemoglobin 29.6 pg (27.0-31.0); Mean Corpuscular Volume 88.7 fl (78.0-98.0); Mean Platelet Volume 8.4 fL (7.4-10.4); Platelet Count 137 10x3/uL (130-400); Red Blood Cell (RBC) Count 2.57 mill/uL (4.70-6.10); White Blood Cell (WBC) Count 4.7 10x3/uL (4.8-10.8)
[2023-07-20 06:36] LABS: Anion Gap 11 mmol/L (10-20); BUN (Urea Nitrogen) 9 mg/dL (8.4-25.7); Calc. Creatinine Clearance 86 mL/min (70-130); Calcium 9.1 mg/dL (7.8-10.44); Carbon Dioxide 19 mmol/L (23-31); Chloride 108 mmol/L (98-107); Estimated GFR 78; Glucose 132 mg/dL (80-115); Potassium 3.3 mmol/L (3.5-5.1); Sodium 135 mmol/L (136-145)
[2023-07-20] MEDS: Sodium Chloride 0.9% 1,000 ML IV SCH (08:35)
[2023-07-20] MEDS: Escitalopram Oxalate 20 mg Tablet PO SCH (08:35)
[2023-07-20] MEDS: DULoxetine 60 MG CAP PO SCH (08:35)
[2023-07-20] MEDS: busPIRone HCl 10 MG TAB PO SCH (08:36)
[2023-07-20] MEDS: Famotidine 20 MG TAB PO SCH (08:45)
[2023-07-20] MEDS: Lidocaine 4% Patch TD SCH (08:46)
[2023-07-20 13:02] VITALS: BP 149/83; TEMP 98.6
== END 2023-07-20 18:06 | disposition home or self-care (01) | DRG 329 ==
LOC: SURG A 07-17 07:20 → SJJU 07-17 19:44
PROVIDERS: ADMIT Surgery; ATTEND Surgery
PROC: 0DN80ZZ Release Small Intestine, Open Approach (ICD-10-PCS; principal; 2023-07-17)
PROC: 0D1B0Z4 Bypass Ileum to Cutaneous, Open Approach (ICD-10-PCS; 2023-07-17)
PROC: 0DB80ZZ Excision of Small Intestine, Open Approach (ICD-10-PCS; 2023-07-17)
PROC: 0DBE0ZZ Excision of Large Intestine, Open Approach (ICD-10-PCS; 2023-07-17)
PROC: 3E0M05Z Introduction of Adhesion Barrier into Peritoneal Cavity, Open Approach (ICD-10-PCS; 2023-07-17)
DX: K94.03 Colostomy malfunction (principal); K65.1 Peritoneal abscess; K56.7 Ileus, unspecified; K91.89 Other postprocedural complications and disorders of digestive system; D64.9 Anemia, unspecified; K66.0 Peritoneal adhesions (postprocedural) (postinfection); E78.00 Pure hypercholesterolemia, unspecified; F41.9 Anxiety disorder, unspecified; F32.A Depression, unspecified; E11.9 Type 2 diabetes mellitus without complications; Z87.891 Personal history of nicotine dependence; Z88.8 Allergy status to other drugs, medicaments and biological substances; Z98.890 Other specified postprocedural states; Z79.899 Other long term (current) drug therapy
CPT/HCPCS: 36415; 36416; 80048; 85014; 85018; 85025; 86850; 86900; 86901; 87070; 87077; 87186; 87205; 88307; 97139; A4314; A4649; C1776; J0694; J1100; J1650; J2185; J2250; J2405; J2543; J2704; J3010; J3490; J7050; S0020; S0028

== ENCOUNTER 2023-07-25 15:51 | Inpatient (IN) | payer MEDICARE ==
[2023-07-25] MEDS ORDERED: Ipratropium/Albuterol 3 ML NEB NEB PRN (16:41)
[2023-07-25] MEDS ORDERED: Morphine 4 MG/ML VIAL SLOW IVP PRN (16:41)
[2023-07-25] MEDS ORDERED: Promethazine HCl 25 MG/ML VIAL IM PRN (16:41)
[2023-07-25] MEDS ORDERED: Glucagon 1 MG/ML KIT IM PRN (16:41)
[2023-07-25] MEDS ORDERED: hydrALAZINE 20 MG/ML VIAL SLOW IVP PRN (16:41)
[2023-07-25] MEDS ORDERED: Dextrose 50% Abboject 50 ML SYRINGE SLOW IVP PRN (16:41)
[2023-07-25] MEDS ORDERED: HYDROcodone/Acetaminophen 7.5/325 mg Tablet PO PRN (16:41)
[2023-07-25] MEDS ORDERED: Ondansetron PF 4 MG/2 ML Vial IVP PRN (16:41)
[2023-07-25] MEDS ORDERED: HumaLOG 300 UNITS/3 ML VIAL SC PRN (16:41)
[2023-07-25] MEDS ORDERED: Dextrose 5% in Water 1,000 ML IV PRN (16:41)
[2023-07-25 16:55] VITALS: BMI 25.7
[2023-07-25] MEDS ORDERED: Meropenem 1 GM in Sodium Chloride 0.9% 100 ML IVPB SCH ×2 (17:00→22:00)
[2023-07-25] MEDS: Sodium Chloride 0.9% 1,000 ML IV SCH (18:04)
[2023-07-25] MEDS ORDERED: Transdermal Patch Removal TOP SCH (21:00)
[2023-07-25] MEDS: busPIRone HCl 10 MG TAB PO SCH (21:54)
[2023-07-25] MEDS: Diphenoxylate HCl/Atropine Tablet PO SCH (21:54)
[2023-07-25] MEDS: traZODone HCl 50 MG TAB PO SCH (21:54)
[2023-07-25] MEDS: Famotidine/PF 20 mg/2ml Vial SLOW IVP SCH (21:55)
[2023-07-25] MEDS: Famotidine 20 MG TAB PO SCH (21:55)
[2023-07-25] MEDS: hydrALAZINE 25 MG TAB PO SCH (22:13)
[2023-07-26] MEDS: Sodium Chloride 0.9% 1,000 ML IV SCH ×3 (01:11→17:45)
[2023-07-26] MEDS: Meropenem 1 GM in Sodium Chloride 0.9% 100 ML IVPB SCH ×2 (02:14→08:38)
[2023-07-26 05:42] LABS: #Eosinphils 0.1 thou/uL (0.0-0.7); #Monocytes 0.6 thou/uL (0.11-0.59); #Neutrophils 4.3 thou/uL (1.40-6.50); %Basophils 0.4 % (0.0-1.0); %Eosinophils 0.9 % (0.0-10.0); %Lymphocytes 9.3 % (21.0-51.0); %Monocytes 10.9 % (0.0-10.0); %Neutrophils 77.8 % (42.0-75.0); Hematocrit 21.2 % (42.0-52.0); Hemoglobin 7.1 g/dL (14.0-18.0); Mean Corpuscular HGB CONC 33.5 g/dL (32.0-36.0); Mean Corpuscular Hemoglobin 28.4 pg (27.0-31.0); Mean Corpuscular Volume 84.8 fl (78.0-98.0); Mean Platelet Volume 8.7 fL (7.4-10.4); Platelet Count 226 10x3/uL (130-400); White Blood Cell (WBC) Count 5.5 10x3/uL (4.8-10.8)
[2023-07-26 06:11] LABS: Anion Gap 11 mmol/L (10-20); BUN (Urea Nitrogen) 33 mg/dL (8.4-25.7); Calc. Creatinine Clearance 47 mL/min (70-130); Calcium 9.5 mg/dL (7.8-10.44); Carbon Dioxide 20 mmol/L (23-31); Chloride 104 mmol/L (98-107); Estimated GFR 37; Glucose 143 mg/dL (80-115); Potassium 3.7 mmol/L (3.5-5.1); Sodium 131 mmol/L (136-145)
[2023-07-26] MEDS: busPIRone HCl 10 MG TAB PO SCH ×2 (08:39→21:07)
[2023-07-26] MEDS: Famotidine 20 MG TAB PO SCH ×2 (08:40→21:07)
[2023-07-26] MEDS: DULoxetine 60 MG CAP PO SCH (08:40)
[2023-07-26] MEDS: hydrALAZINE 25 MG TAB PO SCH ×3 (08:40→21:07)
[2023-07-26] MEDS: Escitalopram Oxalate 20 mg Tablet PO SCH (08:40)
[2023-07-26] MEDS: Famotidine/PF 20 mg/2ml Vial SLOW IVP SCH ×2 (08:40→21:16)
[2023-07-26] MEDS: Diphenoxylate HCl/Atropine Tablet PO SCH ×3 (08:40→21:16)
[2023-07-26] MEDS ORDERED: Meropenem 1 GM in Sodium Chloride 0.9% 100 ML IVPB SCH (21:00)
[2023-07-26] MEDS: traZODone HCl 50 MG TAB PO SCH (21:07)
[2023-07-27] MEDS: Sodium Chloride 0.9% 1,000 ML IV SCH ×2 (01:20→12:32)
[2023-07-27 05:17] LABS: #Eosinphils 0.1 thou/uL (0.0-0.7); #Monocytes 0.6 thou/uL (0.11-0.59); %Basophils 0.3 % (0.0-1.0); %Eosinophils 1.6 % (0.0-10.0); %Lymphocytes 9.2 % (21.0-51.0); %Neutrophils 78.8 % (42.0-75.0); Hematocrit 21.3 % (42.0-52.0); Hemoglobin 7.2 g/dL (14.0-18.0); Mean Corpuscular HGB CONC 33.8 g/dL (32.0-36.0); Mean Corpuscular Hemoglobin 28.9 pg (27.0-31.0); Mean Corpuscular Volume 85.5 fl (78.0-98.0); Mean Platelet Volume 8.6 fL (7.4-10.4); Platelet Count 251 10x3/uL (130-400); RBC Distribution Width 13.9 % (11.5-14.5); Red Blood Cell (RBC) Count 2.49 mill/uL (4.70-6.10); White Blood Cell (WBC) Count 6.3 10x3/uL (4.8-10.8)
[2023-07-27 05:47] LABS: Anion Gap 12 mmol/L (10-20); BUN (Urea Nitrogen) 27 mg/dL (8.4-25.7); Calc. Creatinine Clearance 62 mL/min (70-130); Calcium 8.9 mg/dL (7.8-10.44); Carbon Dioxide 19 mmol/L (23-31); Chloride 104 mmol/L (98-107); Estimated GFR 53; Glucose 122 mg/dL (80-115); Potassium 4.3 mmol/L (3.5-5.1); Sodium 131 mmol/L (136-145)
[2023-07-27] MEDS ORDERED: Non-Formulary Item 1 EACH (Lidocaine 5% Patch [Lidoderm 5% Patch] 1 PATCH Patch) TD SCH (09:00)
[2023-07-27] MEDS ORDERED: Meropenem 1 GM in Sodium Chloride 0.9% 100 ML IVPB SCH (09:00)
[2023-07-27] MEDS ORDERED: Lidocaine 4% Patch TD SCH (09:00)
[2023-07-27] MEDS: busPIRone HCl 10 MG TAB PO SCH (09:33)
[2023-07-27] MEDS: hydrALAZINE 25 MG TAB PO SCH ×2 (09:33→12:02)
[2023-07-27] MEDS: DULoxetine 60 MG CAP PO SCH (09:34)
[2023-07-27] MEDS: Diphenoxylate HCl/Atropine Tablet PO SCH ×2 (09:34→14:18)
[2023-07-27] MEDS: Famotidine 20 MG TAB PO SCH (09:34)
[2023-07-27] MEDS: Escitalopram Oxalate 20 mg Tablet PO SCH (09:34)
[2023-07-27] MEDS: Famotidine/PF 20 mg/2ml Vial SLOW IVP SCH (09:35)
[2023-07-27 12:03] VITALS: BP 108/62
[2023-07-27 12:35] VITALS: TEMP 98.1
== END 2023-07-27 15:00 | disposition home or self-care (01) | DRG 683 ==
LOC: SURG A 15:51 → OBSVTOIN 16:41
PROVIDERS: ADMIT Surgery; ATTEND Surgery
DX: N17.9 Acute kidney failure, unspecified (principal); K57.92 Diverticulitis of intestine, part unspecified, without perforation or abscess without bleeding; D64.9 Anemia, unspecified; F41.9 Anxiety disorder, unspecified; M19.90 Unspecified osteoarthritis, unspecified site; E78.00 Pure hypercholesterolemia, unspecified; G89.29 Other chronic pain; F32.A Depression, unspecified; E11.9 Type 2 diabetes mellitus without complications; Z96.611 Presence of right artificial shoulder joint; Z90.49 Acquired absence of other specified parts of digestive tract; Z98.890 Other specified postprocedural states; Z93.3 Colostomy status; Z62.819 Personal history of unspecified abuse in childhood; Z79.899 Other long term (current) drug therapy; Z88.8 Allergy status to other drugs, medicaments and biological substances; Z93.2 Ileostomy status; Z87.891 Personal history of nicotine dependence
CPT/HCPCS: 36415; 36416; 80048; 85025; J1650; J1815; J2185; J3490; J7050

== ENCOUNTER 2023-08-07 12:19 | Inpatient (IN) | payer MEDICARE ==
[2023-08-07] MEDS ORDERED: Morphine 4 MG/ML VIAL ONE (13:51)
[2023-08-07] MEDS ORDERED: Ondansetron PF 4 MG/2 ML Vial ONE (13:51)
[2023-08-07 14:29] LABS: #Monocytes 0.8 thou/uL (0.11-0.59); #Neutrophils 7.5 thou/uL (1.40-6.50); %Basophils 0.4 % (0.0-1.0); %Eosinophils 0.3 % (0.0-10.0); %Lymphocytes 10.1 % (21.0-51.0); %Monocytes 8.9 % (0.0-10.0); %Neutrophils 79.7 % (42.0-75.0); Hemoglobin 8.8 g/dL (14.0-18.0); Mean Corpuscular HGB CONC 33.8 g/dL (32.0-36.0); Mean Corpuscular Hemoglobin 28.9 pg (27.0-31.0); Mean Corpuscular Volume 85.2 fl (78.0-98.0); Mean Platelet Volume 8.3 fL (7.4-10.4); Platelet Count 267 10x3/uL (130-400); RBC Distribution Width 13.9 % (11.5-14.5); Red Blood Cell (RBC) Count 3.05 mill/uL (4.70-6.10); White Blood Cell (WBC) Count 9.4 10x3/uL (4.8-10.8)
[2023-08-07 15:07] LABS: ALT (SGPT) 11 U/L (8-55); AST (SGOT) 14 U/L (5-34); Alkaline Phosphatase 72 U/L (40-110); Anion Gap 14 mmol/L (10-20); BUN (Urea Nitrogen) 23 mg/dL (8.4-25.7); Bilirubin, Total 0.4 mg/dL (0.2-1.2); Calc. Creatinine Clearance 0 mL/min (70-130); Calcium 11.5 mg/dL (7.8-10.44); Carbon Dioxide 26 mmol/L (23-31); Chloride 95 mmol/L (98-107); Estimated GFR 41; Globulin 4.2 g/dL (2.4-3.5); Glucose 123 mg/dL (80-115); Lipase 7 U/L (8-78); Potassium 4.7 mmol/L (3.5-5.1); Protein, Total 8.2 g/dL (5.8-8.1); Sodium 130 mmol/L (136-145)
[2023-08-07] MEDS ORDERED: Sodium Chloride 0.9% 100 ML ONE (16:02)
[2023-08-07] MEDS ORDERED: Piperacillin/Tazobactam 3.375 GM VIAL ONE (16:02)
[2023-08-07] MEDS ORDERED: Vancomycin (BATCH) 1.5 GM in Premix 1 BAG IVPB SCH (16:15)
[2023-08-07] MEDS ORDERED: hydrALAZINE 20 MG/ML VIAL SLOW IVP PRN (18:19)
[2023-08-07] MEDS ORDERED: HYDROcodone/Acetaminophen 7.5/325 mg Tablet PO PRN (18:19)
[2023-08-07] MEDS ORDERED: Glucagon 1 MG/ML KIT IM PRN (18:19)
[2023-08-07] MEDS ORDERED: Promethazine HCl 25 MG/ML VIAL IM PRN (18:19)
[2023-08-07] MEDS ORDERED: Acetaminophen 325 MG TAB PO PRN (18:19)
[2023-08-07] MEDS ORDERED: Dextrose 5% in Water 1,000 ML IV PRN (18:19)
[2023-08-07] MEDS ORDERED: HumaLOG 300 UNITS/3 ML VIAL SC PRN (18:19)
[2023-08-07] MEDS ORDERED: Ipratropium/Albuterol 3 ML NEB NEB PRN (18:19)
[2023-08-07] MEDS ORDERED: Dextrose 50% Abboject 50 ML SYRINGE SLOW IVP PRN (18:19)
[2023-08-07] MEDS: Diphenoxylate HCl/Atropine Tablet PO SCH (18:51)
[2023-08-07] MEDS ORDERED: Meropenem 1 GM in Sodium Chloride 0.9% 100 ML IVPB SCH ×2 (19:00→22:00)
[2023-08-07] MEDS: hydrALAZINE 25 MG TAB PO SCH (20:57)
[2023-08-07] MEDS: Losartan 25 MG TAB PO SCH (20:57)
[2023-08-07] MEDS: traZODone HCl 50 MG TAB PO SCH (20:57)
[2023-08-07] MEDS: Atorvastatin Calcium 40 MG TAB PO SCH (20:58)
[2023-08-07] MEDS: Famotidine 20 MG TAB PO SCH (20:58)
[2023-08-07] MEDS: Sodium Chloride 0.9% 1,000 ML IV SCH (21:04)
[2023-08-07] MEDS: Famotidine/PF 20 mg/2ml Vial SLOW IVP SCH (21:05)
[2023-08-07] MEDS: Ondansetron PF 4 MG/2 ML Vial IVP PRN (21:16)
[2023-08-07 23:15] VITALS: BMI 25.2
[2023-08-08] MEDS: Diphenoxylate HCl/Atropine Tablet PO SCH ×3 (02:13→18:04)
[2023-08-08 05:18] LABS: #Eosinphils 0.1 thou/uL (0.0-0.7); #Monocytes 0.7 thou/uL (0.11-0.59); #Neutrophils 4.9 thou/uL (1.40-6.50); %Basophils 0.3 % (0.0-1.0); %Eosinophils 1.6 % (0.0-10.0); %Lymphocytes 9.9 % (21.0-51.0); %Monocytes 10.9 % (0.0-10.0); Hematocrit 22.2 % (42.0-52.0); Hemoglobin 7.4 g/dL (14.0-18.0); Mean Corpuscular HGB CONC 33.3 g/dL (32.0-36.0); Mean Corpuscular Hemoglobin 28.4 pg (27.0-31.0); Mean Corpuscular Volume 85.1 fl (78.0-98.0); Mean Platelet Volume 8.1 fL (7.4-10.4); Platelet Count 198 10x3/uL (130-400); RBC Distribution Width 13.8 % (11.5-14.5); Red Blood Cell (RBC) Count 2.61 mill/uL (4.70-6.10); White Blood Cell (WBC) Count 6.4 10x3/uL (4.8-10.8)
[2023-08-08 05:41] LABS: Anion Gap 15 mmol/L (10-20); BUN (Urea Nitrogen) 20 mg/dL (8.4-25.7); Calc. Creatinine Clearance 51 mL/min (70-130); Calcium 10.1 mg/dL (7.8-10.44); Carbon Dioxide 23 mmol/L (23-31); Chloride 100 mmol/L (98-107); Estimated GFR 42; Glucose 117 mg/dL (80-115); Potassium 4.1 mmol/L (3.5-5.1); Sodium 134 mmol/L (136-145)
[2023-08-08] MEDS: Sodium Chloride 0.9% 1,000 ML IV SCH ×3 (08:16→20:44)
[2023-08-08] MEDS: Meropenem 1 GM in Sodium Chloride 0.9% 100 ML IVPB SCH ×2 (08:56→20:40)
[2023-08-08] MEDS: Morphine 4 MG/ML VIAL SLOW IVP PRN (08:57)
[2023-08-08] MEDS: Escitalopram Oxalate 20 mg Tablet PO SCH (08:57)
[2023-08-08] MEDS: DULoxetine 60 MG CAP PO SCH (08:57)
[2023-08-08] MEDS: hydrALAZINE 25 MG TAB PO SCH ×3 (08:58→20:42)
[2023-08-08] MEDS: HYDROcodone/Acetaminophen 7.5/325 mg Tablet PO PRN ×2 (12:47→20:58)
[2023-08-08] MEDS: Ondansetron PF 4 MG/2 ML Vial IVP PRN (14:06)
[2023-08-08] MEDS: Famotidine 20 MG TAB PO SCH (20:41)
[2023-08-08] MEDS: Famotidine/PF 20 mg/2ml Vial SLOW IVP SCH (20:41)
[2023-08-08] MEDS: Atorvastatin Calcium 40 MG TAB PO SCH (20:42)
[2023-08-08] MEDS: Losartan 25 MG TAB PO SCH (20:42)
[2023-08-08] MEDS: traZODone HCl 50 MG TAB PO SCH (20:42)
[2023-08-09] MEDS: Diphenoxylate HCl/Atropine Tablet PO SCH ×3 (00:19→18:03)
[2023-08-09] MEDS: Sodium Chloride 0.9% 1,000 ML IV SCH ×3 (00:19→13:47)
[2023-08-09] MEDS: Meropenem 1 GM in Sodium Chloride 0.9% 100 ML IVPB SCH ×2 (08:44→20:18)
[2023-08-09] MEDS: DULoxetine 60 MG CAP PO SCH (08:45)
[2023-08-09] MEDS: Escitalopram Oxalate 20 mg Tablet PO SCH (08:45)
[2023-08-09] MEDS: hydrALAZINE 25 MG TAB PO SCH ×3 (08:48→20:19)
[2023-08-09] MEDS: Morphine 4 MG/ML VIAL SLOW IVP PRN (09:13)
[2023-08-09] MEDS: HYDROcodone/Acetaminophen 7.5/325 mg Tablet PO PRN ×2 (12:43→20:40)
[2023-08-09] MEDS: Losartan 25 MG TAB PO SCH (20:19)
[2023-08-09] MEDS: traZODone HCl 50 MG TAB PO SCH (20:19)
[2023-08-09] MEDS: Atorvastatin Calcium 40 MG TAB PO SCH (20:20)
[2023-08-09] MEDS: Famotidine 20 MG TAB PO SCH (20:20)
[2023-08-09] MEDS: Famotidine/PF 20 mg/2ml Vial SLOW IVP SCH (20:20)
[2023-08-10] MEDS: Diphenoxylate HCl/Atropine Tablet PO SCH ×3 (02:55→18:44)
[2023-08-10] MEDS: Sodium Chloride 0.9% 1,000 ML IV SCH ×2 (04:22→10:55)
[2023-08-10] MEDS ORDERED: Ondansetron ODT 4 MG TAB PO PRN (08:40)
[2023-08-10] MEDS: Escitalopram Oxalate 20 mg Tablet PO SCH (08:41)
[2023-08-10] MEDS: hydrALAZINE 25 MG TAB PO SCH ×3 (08:41→21:29)
[2023-08-10] MEDS: DULoxetine 60 MG CAP PO SCH (08:42)
[2023-08-10] MEDS: HYDROcodone/Acetaminophen 7.5/325 mg Tablet PO PRN ×2 (10:54→21:30)
[2023-08-10] MEDS: Meropenem 1 GM in Sodium Chloride 0.9% 100 ML IVPB SCH ×2 (10:55→21:29)
[2023-08-10] MEDS: Losartan 25 MG TAB PO SCH (21:29)
[2023-08-10] MEDS: traZODone HCl 50 MG TAB PO SCH (21:29)
[2023-08-10] MEDS: Famotidine 20 MG TAB PO SCH (21:30)
[2023-08-10] MEDS: Famotidine/PF 20 mg/2ml Vial SLOW IVP SCH (21:32)
[2023-08-10] MEDS: Atorvastatin Calcium 40 MG TAB PO SCH (21:33)
[2023-08-11] MEDS: Diphenoxylate HCl/Atropine Tablet PO SCH ×3 (03:07→17:42)
[2023-08-11] MEDS: hydrALAZINE 25 MG TAB PO SCH ×3 (10:15→21:15)
[2023-08-11] MEDS: Meropenem 1 GM in Sodium Chloride 0.9% 100 ML IVPB SCH ×2 (10:16→21:13)
[2023-08-11] MEDS: DULoxetine 60 MG CAP PO SCH (10:16)
[2023-08-11] MEDS: Escitalopram Oxalate 20 mg Tablet PO SCH (10:16)
[2023-08-11] MEDS: HYDROcodone/Acetaminophen 7.5/325 mg Tablet PO PRN ×2 (10:17→17:43)
[2023-08-11] MEDS: Morphine 4 MG/ML VIAL SLOW IVP PRN (11:32)
[2023-08-11] MEDS: Sodium Chloride 0.9% 1,000 ML IV SCH (14:16)
[2023-08-11] MEDS: Famotidine 20 MG TAB PO SCH (21:14)
[2023-08-11] MEDS: Atorvastatin Calcium 40 MG TAB PO SCH (21:14)
[2023-08-11] MEDS: Losartan 25 MG TAB PO SCH (21:14)
[2023-08-11] MEDS: traZODone HCl 50 MG TAB PO SCH (21:14)
[2023-08-11] MEDS: Famotidine/PF 20 mg/2ml Vial SLOW IVP SCH (21:15)
[2023-08-12] MEDS: Sodium Chloride 0.9% 1,000 ML IV SCH ×3 (03:06→22:08)
[2023-08-12] MEDS: Diphenoxylate HCl/Atropine Tablet PO SCH ×3 (03:46→18:55)
[2023-08-12] MEDS: Meropenem 1 GM in Sodium Chloride 0.9% 100 ML IVPB SCH ×2 (08:00→22:03)
[2023-08-12] MEDS: hydrALAZINE 25 MG TAB PO SCH ×3 (08:03→22:02)
[2023-08-12] MEDS: DULoxetine 60 MG CAP PO SCH (08:05)
[2023-08-12] MEDS: Escitalopram Oxalate 20 mg Tablet PO SCH (08:05)
[2023-08-12] MEDS: HYDROcodone/Acetaminophen 7.5/325 mg Tablet PO PRN (11:46)
[2023-08-12] MEDS: Atorvastatin Calcium 40 MG TAB PO SCH (22:01)
[2023-08-12] MEDS: Famotidine 20 MG TAB PO SCH (22:01)
[2023-08-12] MEDS: Losartan 25 MG TAB PO SCH (22:02)
[2023-08-12] MEDS: traZODone HCl 50 MG TAB PO SCH (22:02)
[2023-08-12] MEDS: Famotidine/PF 20 mg/2ml Vial SLOW IVP SCH (22:05)
[2023-08-12] MEDS: Ondansetron PF 4 MG/2 ML Vial IVP PRN (22:08)
[2023-08-13] MEDS: Diphenoxylate HCl/Atropine Tablet PO SCH (03:54)
[2023-08-13] MEDS: Meropenem 1 GM in Sodium Chloride 0.9% 100 ML IVPB SCH (08:51)
[2023-08-13] MEDS: Escitalopram Oxalate 20 mg Tablet PO SCH (08:51)
[2023-08-13] MEDS: hydrALAZINE 25 MG TAB PO SCH ×2 (08:51→11:53)
[2023-08-13] MEDS: DULoxetine 60 MG CAP PO SCH (08:51)
[2023-08-13] MEDS: HYDROcodone/Acetaminophen 7.5/325 mg Tablet PO PRN (08:58)
[2023-08-13] MEDS ORDERED: Diphenoxylate HCl/Atropine Tablet PO SCH ×2 (12:00→22:00)
[2023-08-13 12:35] LABS: #Monocytes 0.5 thou/uL (0.11-0.59); #Neutrophils 4.2 thou/uL (1.40-6.50); %Basophils 0.2 % (0.0-1.0); %Eosinophils 0.6 % (0.0-10.0); %Lymphocytes 11.6 % (21.0-51.0); %Monocytes 8.6 % (0.0-10.0); %Neutrophils 78.6 % (42.0-75.0); Hematocrit 22.2 % (42.0-52.0); Hemoglobin 7.5 g/dL (14.0-18.0); Mean Corpuscular HGB CONC 33.8 g/dL (32.0-36.0); Mean Corpuscular Hemoglobin 28.4 pg (27.0-31.0); Mean Corpuscular Volume 84.1 fl (78.0-98.0); Mean Platelet Volume 8.6 fL (7.4-10.4); Platelet Count 176 10x3/uL (130-400); Red Blood Cell (RBC) Count 2.64 mill/uL (4.70-6.10); White Blood Cell (WBC) Count 5.4 10x3/uL (4.8-10.8)
[2023-08-13 17:54] VITALS: BP 137/71; TEMP 97.1
== END 2023-08-13 18:25 | disposition swing bed (61) | DRG 862 ==
LOC: ERS 12:19 → SJJU 16:13
PROVIDERS: ADMIT Surgery; ATTEND Surgery
PROC: 02HV33Z Insertion of Infusion Device into Superior Vena Cava, Percutaneous Approach (ICD-10-PCS; principal; 2023-08-10)
PROC: B5181ZA Fluoroscopy of Superior Vena Cava using Low Osmolar Contrast, Guidance (ICD-10-PCS; 2023-08-10)
PROC: B548ZZA Ultrasonography of Superior Vena Cava, Guidance (ICD-10-PCS; 2023-08-10)
PROC: 3E04329 Introduction of Other Anti-infective into Central Vein, Percutaneous Approach (ICD-10-PCS; 2023-08-10)
DX: T81.43XA Infection following a procedure, organ and space surgical site, initial encounter (principal); K65.1 Peritoneal abscess; N17.9 Acute kidney failure, unspecified; T81.32XA Disruption of internal operation (surgical) wound, not elsewhere classified, initial encounter; T81.30XA Disruption of wound, unspecified, initial encounter; E11.9 Type 2 diabetes mellitus without complications; I10 Essential (primary) hypertension; E78.5 Hyperlipidemia, unspecified; F41.9 Anxiety disorder, unspecified; F32.9 Major depressive disorder, single episode, unspecified; F43.10 Post-traumatic stress disorder, unspecified; B96.89 Other specified bacterial agents as the cause of diseases classified elsewhere; Z98.890 Other specified postprocedural states; Z90.49 Acquired absence of other specified parts of digestive tract; Z93.2 Ileostomy status; Z87.891 Personal history of nicotine dependence
CPT/HCPCS: 36415; 36416; 36569; 74177; 80048; 80053; 83605; 83690; 85025; 87040; 87077; 87186; 96365; 96367; 96375; 97139; J1650; J2185; J2270; J2405; J2543; J3370; J3490; J7050; Q0162; S0028

== ENCOUNTER 2023-08-22 09:30 | Day surgery (SDC) | payer MEDICARE ==
[2023-08-22] MEDS ORDERED: Fleet Saline Enema 133 ML BOT PR SCH (09:45)
[2023-08-22] MEDS ORDERED: PROPOFOL 20 ML ONE (10:46)
[2023-08-22] MEDS ORDERED: Lidocaine 1% PF 5 ML VIAL ONE (10:46)
[2023-08-22] MEDS ORDERED: PHENYLEPHRINE-NS 100 MCG/ML 10 ML SYRINGE ONE (11:17)
== END 2023-08-22 12:19 | disposition critical access hospital (66) ==
LOC: SDC 09:30
PROVIDERS: ATTEND Internal Medicine Gastroenterology
PROC: 0DJD8ZZ Inspection of Lower Intestinal Tract, Via Natural or Artificial Opening Endoscopic (ICD-10-PCS; principal; 2023-08-22)
DX: K62.5 Hemorrhage of anus and rectum (principal); K21.9 Gastro-esophageal reflux disease without esophagitis; D64.9 Anemia, unspecified; F32.A Depression, unspecified; E10.9 Type 1 diabetes mellitus without complications; K65.9 Peritonitis, unspecified; I10 Essential (primary) hypertension; E78.00 Pure hypercholesterolemia, unspecified; Z98.890 Other specified postprocedural states; Z88.8 Allergy status to other drugs, medicaments and biological substances; Z91.010 Allergy to peanuts; Z79.82 Long term (current) use of aspirin; Z86.010 Personal history of colon polyps; Z79.84 Long term (current) use of oral hypoglycemic drugs; Z79.899 Other long term (current) drug therapy; Z93.3 Colostomy status
CPT/HCPCS: J2704

== ENCOUNTER 2023-09-25 08:24 | Outpatient (CLI) | payer MEDICARE ==
[2023-09-25] MEDS ORDERED: MD-Gastroview 120 ML BOT ONE (08:45)
== END 2023-09-25 08:25 | disposition home or self-care (01) ==
LOC: RAD 08:24
PROVIDERS: ATTEND Surgery
DX: K57.92 Diverticulitis of intestine, part unspecified, without perforation or abscess without bleeding (principal); K91.30 Postprocedural intestinal obstruction, unspecified as to partial versus complete; K63.89 Other specified diseases of intestine
CPT/HCPCS: 74280; Q9963

== ENCOUNTER 2023-10-07 16:57 | Inpatient (IN) | payer MEDICARE ==
[2023-10-07 17:51] LABS: #Eosinphils 0.1 thou/uL (0.0-0.7); #Monocytes 0.7 thou/uL (0.11-0.59); #Neutrophils 6.4 thou/uL (1.40-6.50); %Basophils 0.2 % (0.0-1.0); %Eosinophils 1.5 % (0.0-10.0); %Lymphocytes 11.3 % (21.0-51.0); %Monocytes 8.1 % (0.0-10.0); %Neutrophils 78.7 % (42.0-75.0); Hematocrit 29.9 % (42.0-52.0); Hemoglobin 10.1 g/dL (14.0-18.0); Mean Corpuscular HGB CONC 33.8 g/dL (32.0-36.0); Mean Corpuscular Hemoglobin 28.3 pg (27.0-31.0); Mean Corpuscular Volume 83.8 fl (78.0-98.0); Mean Platelet Volume 8.3 fL (7.4-10.4); Platelet Count 185 10x3/uL (130-400); RBC Distribution Width 16.8 % (11.5-14.5); Red Blood Cell (RBC) Count 3.57 mill/uL (4.70-6.10); White Blood Cell (WBC) Count 8.1 10x3/uL (4.8-10.8)
[2023-10-07 18:11] LABS: Bacteria/HPF None Seen HPF (None Seen); Bilirubin Negative (Negative); Blood, Urine Negative (Negative); CAUTI Indications for Culture Pelvic or flank pain; Clarity Clear (Clear); Glucose, Urine (Dipstick) Normal (Negative); Ketone, Urine Negative (Negative); Leukocyte Negative Leu/uL (Negative); Nitrite Negative (Negative); Protein, Urine (Dipstick) 10 mg/dL (Neg-Trace); RBC/HPF 0-3 HPF (0-3); Specific Gravity, Urine 1.012 (1.002-1.036); Squamous Epithelial 0-3 HPF (0-3); Urobilinogen Normal mg/dL (Less than 2); WBC/HPF 0-3 HPF (0-3); pH, Urine 5.5 (5.0-9.0)
[2023-10-07 18:12] LABS: Urine Culture Reflex No No
[2023-10-07 18:21] LABS: ALT (SGPT) 8 U/L (8-55); AST (SGOT) 8 U/L (5-34); Albumin 3.9 g/dL (3.4-4.8); Alkaline Phosphatase 59 U/L (40-110); Anion Gap 17 mmol/L (10-20); BUN (Urea Nitrogen) 75 mg/dL (8.4-25.7); Bilirubin, Total 0.2 mg/dL (0.2-1.2); Calc. Creatinine Clearance 0 mL/min (70-130); Calcium 9.5 mg/dL (7.8-10.44); Carbon Dioxide 10 mmol/L (23-31); Chloride 105 mmol/L (98-107); Estimated GFR 20; Globulin 3.9 g/dL (2.4-3.5); Glucose 138 mg/dL (80-115); Potassium 5.5 mmol/L (3.5-5.1); Protein, Total 7.8 g/dL (5.8-8.1); Sodium 126 mmol/L (136-145)
[2023-10-07] MEDS ORDERED: Ondansetron PF 4 MG/2 ML Vial IVP PRN (21:37)
[2023-10-07] MEDS ORDERED: Acetaminophen 325 MG TAB PO PRN (21:37)
[2023-10-07] MEDS ORDERED: Ondansetron ODT 4 MG TAB PO PRN (21:37)
[2023-10-07] MEDS ORDERED: HumaLOG 300 UNITS/3 ML VIAL SC PRN ×2 (21:37)
[2023-10-07] MEDS ORDERED: Dextrose 5% in Water 1,000 ML IV PRN (21:37)
[2023-10-07] MEDS ORDERED: Dextrose 50% Abboject 50 ML SYRINGE SLOW IVP PRN (21:37)
[2023-10-07] MEDS ORDERED: Glucagon 1 MG/ML KIT IM PRN (21:37)
[2023-10-08 00:57] VITALS: BMI 24.1
[2023-10-08 04:26] LABS: #Eosinphils 0.1 thou/uL (0.0-0.7); #Monocytes 0.6 thou/uL (0.11-0.59); #Neutrophils 4.2 thou/uL (1.40-6.50); %Basophils 0.2 % (0.0-1.0); %Eosinophils 2.4 % (0.0-10.0); %Lymphocytes 14.9 % (21.0-51.0); %Monocytes 10.2 % (0.0-10.0); %Neutrophils 72.1 % (42.0-75.0); Hematocrit 26.3 % (42.0-52.0); Hemoglobin 8.8 g/dL (14.0-18.0); Mean Corpuscular HGB CONC 33.5 g/dL (32.0-36.0); Mean Corpuscular Hemoglobin 28.2 pg (27.0-31.0); Mean Corpuscular Volume 84.3 fl (78.0-98.0); Mean Platelet Volume 8.1 fL (7.4-10.4); Platelet Count 171 10x3/uL (130-400); RBC Distribution Width 16.8 % (11.5-14.5); Red Blood Cell (RBC) Count 3.12 mill/uL (4.70-6.10); White Blood Cell (WBC) Count 5.8 10x3/uL (4.8-10.8)
[2023-10-08 05:00] LABS: Anion Gap 14 mmol/L (10-20); BUN (Urea Nitrogen) 71 mg/dL (8.4-25.7); Calc. Creatinine Clearance 29 mL/min (70-130); Calcium 9.3 mg/dL (7.8-10.44); Carbon Dioxide 12 mmol/L (23-31); Chloride 109 mmol/L (98-107); Estimated GFR 23; Glucose 125 mg/dL (80-115); Potassium 4.9 mmol/L (3.5-5.1); Sodium 130 mmol/L (136-145)
[2023-10-08] MEDS: Sodium Chloride 0.9% 1,000 ML IV SCH ×5 (05:00→22:13)
[2023-10-08] MEDS: Metoprolol Tartrate 25 MG TAB PO SCH (08:38)
[2023-10-08] MEDS: Famotidine 20 MG TAB PO SCH (08:38)
[2023-10-08] MEDS: Aspirin 81 mg Enteric Coated Tablet PO SCH (08:38)
[2023-10-08] MEDS: Sodium Bicarbonate Tab 325 MG TAB PO SCH ×3 (08:45→20:43)
[2023-10-08] MEDS ORDERED: Diphenoxylate HCl/Atropine Tablet PO SCH (09:00)
[2023-10-08] MEDS ORDERED: Escitalopram Oxalate 20 mg Tablet PO SCH (11:03)
[2023-10-08] MEDS: Opium Tincture 10% (1ml Charge) PO SCH ×2 (15:46→21:21)
[2023-10-08] MEDS: Diphenoxylate HCl/Atropine Tablet PO SCH ×2 (17:09→20:42)
[2023-10-08] MEDS: traZODone HCl 50 MG TAB PO SCH (20:42)
[2023-10-08] MEDS: Atorvastatin Calcium 40 MG TAB PO SCH (20:43)
[2023-10-08] MEDS ORDERED: Dicyclomine 10 MG CAP PO SCH (21:00)
[2023-10-09 04:53] LABS: #Eosinphils 0.1 thou/uL (0.0-0.7); #Monocytes 0.5 thou/uL (0.11-0.59); #Neutrophils 2.7 thou/uL (1.40-6.50); %Basophils 0.5 % (0.0-1.0); %Eosinophils 3.3 % (0.0-10.0); %Lymphocytes 22.7 % (21.0-51.0); %Monocytes 10.5 % (0.0-10.0); %Neutrophils 62.8 % (42.0-75.0); Hematocrit 25.3 % (42.0-52.0); Hemoglobin 8.2 g/dL (14.0-18.0); Mean Corpuscular HGB CONC 32.4 g/dL (32.0-36.0); Mean Corpuscular Hemoglobin 27.4 pg (27.0-31.0); Mean Corpuscular Volume 84.6 fl (78.0-98.0); Mean Platelet Volume 8.2 fL (7.4-10.4); Platelet Count 141 10x3/uL (130-400); RBC Distribution Width 17.2 % (11.5-14.5); Red Blood Cell (RBC) Count 2.99 mill/uL (4.70-6.10); White Blood Cell (WBC) Count 4.3 10x3/uL (4.8-10.8)
[2023-10-09 05:16] LABS: Anion Gap 12 mmol/L (10-20); BUN (Urea Nitrogen) 51 mg/dL (8.4-25.7); Calc. Creatinine Clearance 44 mL/min (70-130); Calcium 9.1 mg/dL (7.8-10.44); Carbon Dioxide 12 mmol/L (23-31); Chloride 113 mmol/L (98-107); Estimated GFR 37; Glucose 107 mg/dL (80-115); Potassium 4.8 mmol/L (3.5-5.1); Sodium 132 mmol/L (136-145)
[2023-10-09] MEDS: Sodium Chloride 0.9% 1,000 ML IV SCH (05:53)
[2023-10-09] MEDS ORDERED: SODIUM CHLORIDE 0.45% IV SCH (06:45)
[2023-10-09] MEDS: Famotidine 20 MG TAB PO SCH (09:12)
[2023-10-09] MEDS: Aspirin 81 mg Enteric Coated Tablet PO SCH (09:12)
[2023-10-09] MEDS: Diphenoxylate HCl/Atropine Tablet PO SCH ×4 (09:12→22:06)
[2023-10-09] MEDS: Sodium Bicarbonate Tab 325 MG TAB PO SCH ×3 (09:12→22:13)
[2023-10-09] MEDS: Escitalopram Oxalate 20 mg Tablet PO SCH (09:13)
[2023-10-09] MEDS: Metoprolol Tartrate 25 MG TAB PO SCH (09:13)
[2023-10-09] MEDS: Opium Tincture 10% (1ml Charge) PO SCH ×3 (10:00→22:06)
[2023-10-09] MEDS ORDERED: DULoxetine 60 MG CAP PO SCH (12:37)
[2023-10-09] MEDS ORDERED: busPIRone HCl 10 MG TAB PO SCH (12:37)
[2023-10-09] MEDS: Atorvastatin Calcium 40 MG TAB PO SCH (22:07)
[2023-10-09] MEDS: traZODone HCl 50 MG TAB PO SCH (22:07)
[2023-10-09] MEDS: busPIRone HCl 10 MG TAB PO SCH (22:07)
[2023-10-10 05:29] LABS: #Eosinphils 0.1 thou/uL (0.0-0.7); #Monocytes 0.5 thou/uL (0.11-0.59); #Neutrophils 3.6 thou/uL (1.40-6.50); %Basophils 0.2 % (0.0-1.0); %Eosinophils 2.6 % (0.0-10.0); %Lymphocytes 14.1 % (21.0-51.0); %Monocytes 10.5 % (0.0-10.0); %Neutrophils 72.2 % (42.0-75.0); Hematocrit 24.1 % (42.0-52.0); Hemoglobin 7.9 g/dL (14.0-18.0); Mean Corpuscular HGB CONC 32.8 g/dL (32.0-36.0); Mean Corpuscular Hemoglobin 27.7 pg (27.0-31.0); Mean Corpuscular Volume 84.6 fl (78.0-98.0); Platelet Count 123 10x3/uL (130-400); RBC Distribution Width 16.9 % (11.5-14.5); Red Blood Cell (RBC) Count 2.85 mill/uL (4.70-6.10)
[2023-10-10 06:31] LABS: Anion Gap 11 mmol/L (10-20); BUN (Urea Nitrogen) 35 mg/dL (8.4-25.7); Calc. Creatinine Clearance 54 mL/min (70-130); Carbon Dioxide 15 mmol/L (23-31); Chloride 109 mmol/L (98-107); Estimated GFR 48; Glucose 95 mg/dL (80-115); Sodium 131 mmol/L (136-145)
[2023-10-10] MEDS ORDERED: DULoxetine 60 MG CAP PO SCH (09:00)
[2023-10-10 09:04] VITALS: TEMP 97.7
[2023-10-10] MEDS: Opium Tincture 10% (1ml Charge) PO SCH ×2 (09:38→15:38)
[2023-10-10] MEDS: Diphenoxylate HCl/Atropine Tablet PO SCH ×2 (09:38→14:30)
[2023-10-10] MEDS: Sodium Bicarbonate Tab 325 MG TAB PO SCH ×2 (09:38→15:39)
[2023-10-10] MEDS: Metoprolol Tartrate 25 MG TAB PO SCH (09:39)
[2023-10-10] MEDS: Famotidine 20 MG TAB PO SCH (09:39)
[2023-10-10] MEDS: busPIRone HCl 10 MG TAB PO SCH (09:39)
[2023-10-10] MEDS: Aspirin 81 mg Enteric Coated Tablet PO SCH (09:39)
[2023-10-10] MEDS: Escitalopram Oxalate 20 mg Tablet PO SCH (09:39)
[2023-10-10 12:35] VITALS: BP 106/54
== END 2023-10-10 16:08 | disposition home or self-care (01) | DRG 683 ==
LOC: ERS 16:57 → 2SW 20:34 → OBSVTOIN 10-08 11:04
PROVIDERS: ADMIT Student in an Organized Health Care Education/Training Program; ATTEND Family Medicine
DX: N17.9 Acute kidney failure, unspecified (principal); E87.1 Hypo-osmolality and hyponatremia; E87.20 Acidosis, unspecified; E86.9 Volume depletion, unspecified; E86.0 Dehydration; E87.5 Hyperkalemia; E11.9 Type 2 diabetes mellitus without complications; I10 Essential (primary) hypertension; E78.5 Hyperlipidemia, unspecified; K21.9 Gastro-esophageal reflux disease without esophagitis; D64.9 Anemia, unspecified; F43.10 Post-traumatic stress disorder, unspecified; F41.9 Anxiety disorder, unspecified; Z93.2 Ileostomy status; Z88.8 Allergy status to other drugs, medicaments and biological substances; Z79.899 Other long term (current) drug therapy; Z79.82 Long term (current) use of aspirin; Z98.890 Other specified postprocedural states; Z90.49 Acquired absence of other specified parts of digestive tract; Z87.891 Personal history of nicotine dependence
CPT/HCPCS: 36415; 36416; 76770; 80048; 80053; 81001; 82728; 83540; 83550; 85025; 93005; G0378; J2405; J7050

== ENCOUNTER 2023-10-22 05:55 | Day surgery (SDC) | payer MEDICARE ==
[2023-10-19 12:50] VITALS: BMI 23.1
[2023-10-22] MEDS ORDERED: Lidocaine 1% PF 5 ML VIAL ONE (06:34)
[2023-10-22] MEDS ORDERED: PROPOFOL 40 ML ONE (06:34)
[2023-10-22] MEDS ORDERED: Fleet Saline Enema 133 ML BOT PR SCH (07:15)
[2023-10-22 07:32] LABS: #Eosinphils 0.1 thou/uL (0.0-0.7); #Monocytes 0.6 thou/uL (0.11-0.59); #Neutrophils 4.5 thou/uL (1.40-6.50); %Basophils 0.3 % (0.0-1.0); %Eosinophils 1.7 % (0.0-10.0); %Lymphocytes 11.2 % (21.0-51.0); %Monocytes 9.8 % (0.0-10.0); %Neutrophils 76.7 % (42.0-75.0); Hematocrit 24.5 % (42.0-52.0); Mean Corpuscular HGB CONC 32.7 g/dL (32.0-36.0); Mean Corpuscular Hemoglobin 28.1 pg (27.0-31.0); Mean Platelet Volume 8.1 fL (7.4-10.4); Platelet Count 151 10x3/uL (130-400); RBC Distribution Width 17.4 % (11.5-14.5); Red Blood Cell (RBC) Count 2.85 mill/uL (4.70-6.10); White Blood Cell (WBC) Count 5.9 10x3/uL (4.8-10.8)
[2023-10-22] MEDS ORDERED: PHENYLEPHRINE-NS 100 MCG/ML 10 ML SYRINGE ONE (07:53)
[2023-10-22] MEDS ORDERED: ePHEDrine Sulfate 50 MG/10 ML VIAL ONE (08:00)
== END 2023-10-22 09:00 | disposition home or self-care (01) ==
LOC: SDC 05:55
PROVIDERS: ATTEND Internal Medicine
PROC: 0DJD8ZZ Inspection of Lower Intestinal Tract, Via Natural or Artificial Opening Endoscopic (ICD-10-PCS; principal; 2023-10-22)
DX: K91.89 Other postprocedural complications and disorders of digestive system (principal); K57.32 Diverticulitis of large intestine without perforation or abscess without bleeding; K65.9 Peritonitis, unspecified; K62.5 Hemorrhage of anus and rectum; E10.9 Type 1 diabetes mellitus without complications; I10 Essential (primary) hypertension; E78.00 Pure hypercholesterolemia, unspecified; D64.9 Anemia, unspecified; Z79.82 Long term (current) use of aspirin; Z98.0 Intestinal bypass and anastomosis status; Z79.899 Other long term (current) drug therapy; Z79.84 Long term (current) use of oral hypoglycemic drugs; Z88.8 Allergy status to other drugs, medicaments and biological substances; Z87.891 Personal history of nicotine dependence; Z93.3 Colostomy status
CPT/HCPCS: 85025; J2704

== ENCOUNTER 2023-12-19 10:12 | Outpatient (CLI) | payer MEDICARE ==
[2023-12-19 11:17] LABS: #Basophils 0.02 10x3/uL (0.0-0.2); #Eosinphils 0.08 10x3/uL (0.0-0.5); #Monocytes 0.48 10x3/uL (0.0-1.1); #Neutrophils 4.48 10x3/uL (1.5-8.4); %Basophils 0.3 % (0.0-2.0); %Eosinophils 1.4 % (0.0-6.0); %Lymphocytes 11.5 % (18.0-47.0); %Monocytes 8.3 % (0.0-10.0); Hematocrit 26.6 % (38.8-50.0); Hemoglobin 9.1 g/dL (13.5-17.5); Mean Corpuscular HGB CONC 34.2 g/dL (32.0-36.0); Mean Corpuscular Hemoglobin 29.4 pg (27.0-33.0); Mean Corpuscular Volume 85.8 fl (81.2-95.1); Mean Platelet Volume 8.1 fl (7.4-10.4); Platelet Count 198 10x3/uL (150-450); RBC Distribution Width 15.6 % (11.5-14.5); White Blood Cell (WBC) Count 5.8 10x3/uL (3.5-10.5)
[2023-12-19 11:40] LABS: Anion Gap 12 mmol/L (10-20); BUN (Urea Nitrogen) 65 mg/dL (8.4-25.7); Calc. Creatinine Clearance 0 mL/min (70-130); Calcium 10.4 mg/dL (7.8-10.44); Carbon Dioxide 15 mmol/L (23-31); Chloride 104 mmol/L (98-107); Estimated GFR 20; Glucose 163 mg/dL (80-115); Potassium 5.7 mmol/L (3.5-5.1); Sodium 125 mmol/L (136-145)
== END 2023-12-19 10:13 | disposition home or self-care (01) ==
LOC: LABBT 10:12
PROVIDERS: ATTEND Surgery
DX: Z01.818 Encounter for other preprocedural examination (principal); K94.13 Enterostomy malfunction
CPT/HCPCS: 80048; 85025; 93005; 93010

== ENCOUNTER 2024-05-13 08:56 | Outpatient (CLI) | payer MEDICARE | END 2024-05-13 08:57 | disposition home or self-care (01) | LOC: RAD 08:56 | PROVIDERS: ATTEND Internal Medicine Critical Care Medicine | DX: R06.00 Dyspnea, unspecified (principal); J90 Pleural effusion, not elsewhere classified | CPT/HCPCS: 71046 ==